=== PATIENT | female | born 1970 | race Caucasian/White ===

== ENCOUNTER 2018-09-10 05:04 | Inpatient (IN) | payer MEDICAID ==
[~2018-09-10] VITALS: Ht 157.5 cm; Wt 63.0 kg
[~2018-09-10 05:04] MED LIST: ASPI-1718 PO; GLU500 PO; IBUP-2213 PO
[2018-09-10 05:25] VITALS: BP 125/75
--- NOTE | 2018-09-10 05:35 | NUR ---
PT AMBULATED TO ER BED 2
--- NOTE | 2018-09-10 05:47 | NUR ---
48 YO F BIB SELF PRESENTS TO ED C/O 10/15 INCISION PAIN TO LOWER LEFT QUADRANT X 1 DAY. PT STATES SHE HAD HER APPENDIX REMOVED X 1 MONTH AGO AT [facility]. SHE IS CURRENTLY BEING TREATED FOR AN INFECTION TO THE SITE. DRESSING IS SATURATED WITH YELLOW/GREEN DRAINAGE. SURROUNDING AREA APPEARS RED AND EXCORIATED. PT DENIES FEVER, NVD. PMH-- DM, HTN, HYPERLIPIDEMIA, PANCREATITIS
--- NOTE | 2018-09-10 05:55 | NUR ---
DR. ATKINS BEDSIDE EVALUATING PT
[2018-09-10] MEDS ORDERED: ALTEPLASE 0 MG IV ONE (05:58)
[2018-09-10] MEDS ORDERED: NACL 0.9% 1,000 ML IV ONE (06:08)
[2018-09-10] MEDS ORDERED: ONDANSETRON 4 MG/2 ML VIAL IVP ONE (06:10)
[2018-09-10] MEDS ORDERED: MORPHINE SULFATE 4 MG/ML SYR IVP ONE (06:10)
--- NOTE | 2018-09-10 06:30 | NUR ---
LABS DRAWN AT BEDSIDE BY RN AND TAKEN TO LAB.
[2018-09-10 06:55] LABS: BILIRUBIN,URINE NEGATIVE (NEGATIVE); BLOOD, URINE NEGATIVE (NEGATIVE); COLOR,URINE YELLOW (YELLOW); LEUKOCYTE ESTERASE ,URINE NEGATIVE (NEGATIVE); NITRITE, URINE NEGATIVE (NEGATIVE); UGLUCOSE 3+ (NEGATIVE)
--- NOTE | 2018-09-10 06:56 | NUR ---
CT WITH CONTRAST OF PELVIS/ABDOMEN CONSENT FORM PROVIDED AND GONE OVER WITH PT. PT IS TAKING METFORMIN. ERMD AND RADIOLOGY MADE AWARE. CONSENT FORM SIGNED.
[2018-09-10 06:57] LABS: APPEARANCE,URINE SLIGHTLY HAZY (CLEAR)
[2018-09-10 07:01] LABS: CARBON DIOXIDE 28.7 mmol/L (21-32); CREATININE 0.5 mg/dL (0.6-1.3); POTASSIUM 3.7 mmol/L (3.5-5.1)
[2018-09-10 07:05] LABS: RBC,URINE NONE SEEN /HPF (0-5)
[2018-09-10 07:06] LABS: ALBUMIN 3.6 g/dL (3.4-5.0); TOTAL BILIRUBIN 0.5 mg/dL (0.0-1.0)
[2018-09-10 07:18] LABS: BASOPHILS % (AUTO) 0.3 % (0.0-2.0); HEMATOCRIT 37.2 % (36-48); HEMOGLOBIN 12.6 g/dL (12.0-16.0); LYMPHOCYTES # (AUTO) 1.6 K/uL (2.5-16.5); LYMPHOCYTES % (AUTO) 31.8 % (20.5-51.1); MEAN CORPUSCULAR HEMOGLOBIN 30 pg (27-31); MEAN CORPUSCULAR HGB CONC 34 g/dL (33-37); MEAN CORPUSCULAR VOLUME 89.3 fL (80-94); MONOCYTES # (AUTO) 0.4 K/uL (0.8-1.0); MONOCYTES % (AUTO) 7.2 % (1.7-9.3); NEUTROPHILS # (AUTO) 2.9 K/uL (1.8-7.7); NEUTROPHILS % (AUTO) 59.7 % (42.2-75.2); PLATELET COUNT (AUTO) 287 K/uL (140-450); RED BLOOD CELL COUNT(AUTO) 4.17 MIL/uL (4.20-5.40); RED CELL DISTRIBUTION WIDTH 12.5 % (11.6-13.7); WHITE BLOOD COUNT (AUTO) 4.9 K/uL (4.8-10.8)
--- NOTE | 2018-09-10 07:36 | NUR ---
RETURNED FROM CT
--- NOTE | 2018-09-10 07:40 | NUR ---
EDUCATION GIVEN TO PT. DO NOT TAKE METFORMIN FOR 48 HOURS AFTER CONTRAST. PT VERBALIZED UNDERSTANDING.
--- NOTE | 2018-09-10 07:57 | NUR ---
CONTINUES TO WAIT FOR CT RESULT AND DISPO----WHEN ASKED WHAT IS HER PAIN LEVEL AT THIS TIME , PT RESPONDED "IM OKAY RIGHT NOW"
[2018-09-10] MEDS ORDERED: ACETAMINOPHEN 325 MG TAB PO PRN (08:20)
[2018-09-10] MEDS ORDERED: MORPHINE SULFATE 2 MG/ML SYR IVP PRN (08:20)
[2018-09-10] MEDS ORDERED: DOCUSATE SODIUM 100 MG GELCAP PO PRN (08:20)
[2018-09-10] MEDS ORDERED: ONDANSETRON 4 MG/2 ML VIAL IM/IVP PRN (08:20)
[2018-09-10] MEDS ORDERED: PIPERACILLIN/TAZOBACTAM 3.375 GM in DEXTROSE 5% 50 ML IV ONE (08:20)
[2018-09-10] MEDS ORDERED: HYDROcodone/APAP 7.5/325 MG 1 TAB PO PRN (08:20)
[2018-09-10] MEDS ORDERED: PIPERACILLIN/TAZOBACTAM 3.375 GM VIAL IV ONE (08:34)
[2018-09-10 08:49] LABS: BARBITURATE, URINE NEG. ng/ml (NEG <=200); BENZODIAZEPINE, URINE NEG. ng/mL (NEG <=200); CANNABINOID, URINE NEG. ng/mL (NEG <=50); COCAINE, URINE NEG. ng/mL (NEG <=300); OPIATE, URINE NEG. ng/mL (NEG <=2000); PHENCYCLIDINE SCREEN,URINE NEG. ng/mL (NEG <=25)
--- NOTE | 2018-09-10 09:12 | NUR ---
Pt transferred to Med/Surg via room 119-b report given to Karen ROUSSEAU
[2018-09-10 09:17] LABS: PROTHROMBIN TIME 9.3 secs (10.8-13.4)
[2018-09-10 09:30] VITALS: BP 99/56
--- NOTE | 2018-09-10 09:30 | NUR ---
PATIENT WAS TRANSFERRED FROM ED. REPORT WAS GIVEN AT BEDSIDE. VS WAS TAKEN. MRSA WAS SWABBED. PATIENT WAS AWAKE, ALERT. RESPIRATION EVEN, UNLABOR ON ROOM AIR. SKIN DRY AND WARM. IV PATENT AND INTACT. DENIED PAIN AT THIS TIME. PATIENT WAS ORIENTED TO ROOM, STAFF, AND CALL LIGHT. PLAN OF CARE WAS DISCUSSED WITH PATIENT. BED AT LOW POSITION, SIDE RAILS UP. CALL LIGHT WITHIN REACH
[2018-09-10 09:34] LABS: MAGNESIUM 1.9 mg/dL (1.8-2.4); PHOSPHORUS 4.2 mg/dL (2.5-4.9); THYROID STIMULATING HORMONE 2.74 uIU/mL (0.34-3.74)
[2018-09-10] MEDS: NACL 0.9% 1,000 ML IV SCH ×2 (09:44→18:47)
[2018-09-10] MEDS ORDERED: DEXTROSE 50% 50 ML SYR IVP PRN (09:50)
--- NOTE | 2018-09-10 12:00 | NUR ---
PT LAYING IN BED. DENIES ANY PAIN. BLOOD SUGAR WAS 205, INSULIN HELD D/T NPO STATUS. WILL CONTINUE TO MONITOR PATIENT.
[2018-09-10] MEDS: PIPER/TAZO 3.375GM/D5W PREMIX 50 ML IV SCH ×2 (12:25→17:09)
[2018-09-10] MEDS: BLOOD GLUCOSE MONITORING 1 DEV DEV FS SCH ×3 (12:28→20:06)
--- NOTE | 2018-09-10 14:06 | NUR ---
MEDICAL RECORD REQUEST WAS SENT PER ORDER
--- NOTE | 2018-09-10 14:22 | NUR ---
PATIENT IS SLEEPING COMFORTABLY. RESPIRATION EVEN, UNLABOR ON ROOM AIR. NO DISTRESS NOTED AT THIS TIME
--- NOTE | 2018-09-10 15:41 | NUR ---
MADE ROUNDS ON PATIENT, RESTING COMFORTABLY, TOOK VITAL SIGNS. NO FURTHER COMPLAINTS AT THIS TIME. WILL CONTINUE TO MONITOR.
[2018-09-10 16:00] VITALS: BP 90/45
[2018-09-10] MEDS: metFORMIN 500 MG TAB PO SCH (17:00)
[2018-09-10] MEDS: INSULIN LISPRO SLIDING SCALE 100 UNITS/ML VIAL SUBQ PRN ×2 (17:13→20:27)
--- NOTE | 2018-09-10 18:30 | NUR ---
PATIENT WAS AWAKE, ALERT, SITTING IN BED COMFORTABLY. RESPIRATION EVEN, UNLABOR ON ROOM AIR. NO DISTRESS NOTED AT THIS TIME
--- NOTE | 2018-09-10 19:15 | NUR ---
UPDATES ON PATIENT GIVEN TO BOX BLANK MACHINE OPERATOR NURSE. PATIENT STABLE UPON CHANGE OF SHIFT.
--- NOTE | 2018-09-10 19:16 | NUR ---
RECEIVED BEDSIDE REPORT FROM DAY SHIFT NURSE. NO SOB OR ANY RESPIRATORY DISTRESS NOTED. SKIN INTACT, WARM AND DRY TO TOUCH. IV SITE ON LFA, 22G, INTACT, PATENT AND ASYMPTOMATIC. DENIED PAIN AT THIS TIME. PLAN OF CARE REVIEWED WITH PT. PT VERBALIZED UNDERSTANDING. STANDARD PRECAUTION IN PLACE. BED IN LOW POSITION, CALL LIGHT WITHIN REACH. WILL CONTINUE TO MONITOR.
--- NOTE | 2018-09-10 20:06 | NUR ---
BS CHECKED, 307. INSULIN WILL BE COVERED.
--- NOTE | 2018-09-10 20:27 | NUR ---
ADMINISTERED HUMALOG INSULIN MD ORDERED. WILL CONTINUE TO MONITOR.
--- NOTE | 2018-09-10 22:10 | NUR ---
PT SLEEPING. BREATHING EVEN AND UNLABORED. NO ACUTE DISTRESS N0OTED.
[2018-09-11] VITALS: BP 90/55
[2018-09-11] MEDS: PIPER/TAZO 3.375GM/D5W PREMIX 50 ML IV SCH ×2 (00:05→05:07)
--- NOTE | 2018-09-11 00:05 | NUR ---
GIVEN ZOSYN MD ORDERED. PT TOLERATED WELL. WILL CONTINUE TO MONITOR.
--- NOTE | 2018-09-11 02:45 | NUR ---
PT AWAKE IN BED. NO SOB OR ANY RESPIRATORY DISTRESS NOTED. BED IN LOW POSITION. CALL LIGHT WITHIN REACH.
[2018-09-11] MEDS: NACL 0.9% 1,000 ML IV SCH ×2 (04:20→08:30)
--- NOTE | 2018-09-11 05:07 | NUR ---
GIVEN ZOSYN DR. ORDERED. PT TOLERATED WELL.
[2018-09-11] MEDS: BLOOD GLUCOSE MONITORING 1 DEV DEV FS SCH ×4 (05:36→21:50)
[2018-09-11] MEDS: INSULIN LISPRO SLIDING SCALE 100 UNITS/ML VIAL SUBQ PRN ×4 (05:49→21:52)
--- NOTE | 2018-09-11 05:49 | NUR ---
BS CHECKED, 235, GIVEN INSULIN MD ORDERED. PT TOLERATED WELL.
--- NOTE | 2018-09-11 06:08 | NUR ---
FNS consult received on 09/10/18 for unhealed wound/abscess. Consult reason does not meet high risk criteria per hospital policy. Patient will be seen and assessed according to the nutrition care policy. Wilda Lilly MS, RDN
--- NOTE | 2018-09-11 06:09 | NUR ---
PATIENT HAS BEEN SCREENED AND CATEGORIZED MODERATE NUTRITION RISK. PATIENT WILL BE SEEN WITHIN 3-5 DAYS OF ADMISSION. 09/13/18-09/15/18 KATERINA VALDEZ MS, RDN
--- NOTE | 2018-09-11 07:17 | NUR ---
ENDORSED PT TO DAY SHIFT NURSE. PT IN STABLE CONDITION.
[2018-09-11] MEDS: metFORMIN 500 MG TAB PO SCH ×2 (07:58→15:55)
[2018-09-11 08:00] VITALS: BP 106/67
[2018-09-11 08:19] LABS: BASOPHILS % (AUTO) 0.1 % (0.0-2.0); EOSINOPHILS # (AUTO) 0.1 K/uL (0-0.4); EOSINOPHILS % (AUTO) 1.2 % (0.0-4.0); HEMATOCRIT 36.5 % (36-48); HEMOGLOBIN 12.4 g/dL (12.0-16.0); LYMPHOCYTES # (AUTO) 1.2 K/uL (2.5-16.5); LYMPHOCYTES % (AUTO) 27.8 % (20.5-51.1); MEAN CORPUSCULAR HEMOGLOBIN 30 pg (27-31); MEAN CORPUSCULAR HGB CONC 34 g/dL (33-37); MEAN CORPUSCULAR VOLUME 89.6 fL (80-94); MONOCYTES # (AUTO) 0.2 K/uL (0.8-1.0); MONOCYTES % (AUTO) 5.3 % (1.7-9.3); NEUTROPHILS # (AUTO) 2.9 K/uL (1.8-7.7); NEUTROPHILS % (AUTO) 65.6 % (42.2-75.2); PLATELET COUNT (AUTO) 289 K/uL (140-450); RED BLOOD CELL COUNT(AUTO) 4.08 MIL/uL (4.20-5.40); RED CELL DISTRIBUTION WIDTH 13.2 % (11.6-13.7); WHITE BLOOD COUNT (AUTO) 4.4 K/uL (4.8-10.8)
[2018-09-11] MEDS: LACTOBACILLUS RHAMNOSUS GG 1 EACH CAP PO SCH (08:29)
--- NOTE | 2018-09-11 08:30 | NUR ---
SCHEDULED MED GIVEN. PT UP IN BED, FINISHED BREAKFAST.
[2018-09-11 09:16] LABS: ANION GAP 15.7 (8-16); CARBON DIOXIDE 23.6 mmol/L (21-32); POTASSIUM 3.3 mmol/L (3.5-5.1)
[2018-09-11 09:28] LABS: CHOL/HDL RATIO 4.6 (1-4.5)
[2018-09-11 09:29] LABS: MAGNESIUM 1.7 mg/dL (1.8-2.4); PHOSPHORUS 2.8 mg/dL (2.5-4.9)
[2018-09-11 09:33] LABS: CREATININE 0.5 mg/dL (0.6-1.3)
[2018-09-11] MEDS ORDERED: MAGNESIUM OXIDE 400 MG TAB PO SCH (11:15)
[2018-09-11] MEDS ORDERED: POTASSIUM CHLORIDE 40 MEQ, LIDOCAINE MPF 1% - 5 mL VIAL 25 MG in NACL 0.9% 250 ML IV ONE (11:15)
[2018-09-11] MEDS: PIPERACILLIN/TAZOBACTAM 3.375 GM in DEXTROSE 5% 100 ML IV SCH ×2 (11:36→17:14)
[2018-09-11] MEDS ORDERED: POTASSIUM CHLORIDE 40 MEQ, LIDOCAINE 1% 25 MG in NACL 0.9% 250 ML IV ONE (11:50)
--- NOTE | 2018-09-11 12:23 | NUR ---
CALLED PHARMACY TO BRING ONE TIME DOSE MAG OX- TELE PYXIS NOT WORKING.
--- NOTE | 2018-09-11 15:56 | NUR ---
SCHEDULED METFORMIN WILL NOT BE GIVEN- STILL WITHIN 48HRS AFTER CONTRAST ADMIN.
[2018-09-11 16:00] VITALS: BP 100/60
--- NOTE | 2018-09-11 18:05 | NUR ---
NOTIFIED DR. BROWN OF US ABD RESULTS. PER DR. STEPHANIE DU TO D/C TODAY, F/U OUTPATIENT IN 1 WEEK, RX ABX AMPICILLIN X1 WEEK. NOTIFIED DR. STONE. PER DR. MOTA, WILL PLAN TO D/C TOMORROW.
--- NOTE | 2018-09-11 19:11 | NUR ---
ENDORSED POC TO PIPE TESTING TECHNICIAN RN. PT IN STABLE CONDITION.
--- NOTE | 2018-09-11 19:15 | NUR ---
RECEIVED ENDORSEMENT FOR POC AT BEDSIDE FOR CONTINUITY OF CARE, PT IN STABLE CONDITION.
[2018-09-11] MEDS ORDERED: VANCOMYCIN PER PHARMACY MC PRN (19:25)
--- NOTE | 2018-09-11 20:00 | NUR ---
PT IN BED SHE IS AOX4 SPEAKS ALB[place], BUT UNDERSTANDS AND CAN COMMUNICATE IN [place]. SHE HAS NO C/O OF PAIN. IV SITE ON 22G LEFT FOREARM INTACT AND FLUSHED PATENT. N/S RUNNING AT 60MLS /HR. PT HAS NO C/O VOICED AT THIS TIME BED IS LOW AND SIDE RAILS UP X2 WITH GINO POPE IN REACH. V/S FOLLOWS T 97.9 P 77 R 18 B/P 97/43 02 99% ON ROOM AIR.
[2018-09-11] MEDS ORDERED: VANCOMYCIN 1GM/DEXT 5% PREMIX 200 ML IV SCH (21:00)
--- NOTE | 2018-09-11 21:00 | NUR ---
PT N BED FINGERSTICK IS 359, PT GIVEN 10 UNITS OF HUMALOG PER S/S PROTOCOL. PT ALSO GIVEN VANCOCIN IVPB ORDERED. PT DENIES PAIN.
[2018-09-11] MEDS ORDERED: VANCOMYCIN 1,000 MG VIAL ONE (21:46)
[2018-09-12] VITALS: BP 91/53
--- NOTE | 2018-09-12 | NUR ---
PT IN BED SLEEPING BUT AROUSABLE TO LIGHT TOUCH AND NAME. PT GIVEN IVPB ZOSYN ORDERED. V/S FOLLOWS T 97.9 P 77 R 18 B/P 97/43 02 99% ON ROOM AIR. NO C/O VOICED BY RESIDENT AND NO S/S OF PAIN OR DISTRESS NOTED.
[2018-09-12] MEDS: PIPERACILLIN/TAZOBACTAM 3.375 GM in DEXTROSE 5% 100 ML IV SCH ×3 (00:13→12:56)
--- NOTE | 2018-09-12 04:39 | NUR ---
IV SITE ON LEFT F/A INFILTRATED, NEW IV SITE PLACED ON R HAND 24G.
[2018-09-12] MEDS: BLOOD GLUCOSE MONITORING 1 DEV DEV FS SCH ×4 (05:48→21:00)
[2018-09-12] MEDS: INSULIN LISPRO SLIDING SCALE 100 UNITS/ML VIAL SUBQ PRN ×4 (05:52→23:35)
--- NOTE | 2018-09-12 06:00 | NUR ---
PT IN BED MIRNA GUAMAN ORDERED AND FINGERSTICK TAKEN F/S IS 247, PT GIVEN 4 UNITS OF HUMALOG COVERAGE. NO C/O VOICED BY PT AND ALL REQUESTED NEEDS ATTENDED. WILL ENDORSE CARE TO N[facility] F[facility] CONTINUITY OF CARE,PT IN STABLE CONDITION.
[2018-09-12 06:03] LABS: ANION GAP 13.7 (8-16); CARBON DIOXIDE 25.3 mmol/L (21-32); CREATININE 0.5 mg/dL (0.6-1.3)
[2018-09-12 06:11] LABS: MAGNESIUM 1.6 mg/dL (1.8-2.4); PHOSPHORUS 4.2 mg/dL (2.5-4.9)
[2018-09-12 06:29] LABS: BASOPHILS % (AUTO) 0.3 % (0.0-2.0); EOSINOPHILS # (AUTO) 0.1 K/uL (0-0.4); EOSINOPHILS % (AUTO) 1.2 % (0.0-4.0); HEMATOCRIT 36.5 % (36-48); HEMOGLOBIN 12.4 g/dL (12.0-16.0); LYMPHOCYTES # (AUTO) 1.7 K/uL (2.5-16.5); LYMPHOCYTES % (AUTO) 37.4 % (20.5-51.1); MEAN CORPUSCULAR HEMOGLOBIN 31 pg (27-31); MEAN CORPUSCULAR HGB CONC 34 g/dL (33-37); MEAN CORPUSCULAR VOLUME 90.1 fL (80-94); MONOCYTES # (AUTO) 0.3 K/uL (0.8-1.0); MONOCYTES % (AUTO) 7.2 % (1.7-9.3); NEUTROPHILS # (AUTO) 2.5 K/uL (1.8-7.7); NEUTROPHILS % (AUTO) 53.9 % (42.2-75.2); PLATELET COUNT (AUTO) 277 K/uL (140-450); RED BLOOD CELL COUNT(AUTO) 4.05 MIL/uL (4.20-5.40); RED CELL DISTRIBUTION WIDTH 13.1 % (11.6-13.7); WHITE BLOOD COUNT (AUTO) 4.6 K/uL (4.8-10.8)
--- NOTE | 2018-09-12 07:10 | NUR ---
RECEIVED BEDSIDE REPORT FROM SOHAM SCHMITT. PT STABLE, SLEEPING, BUT EASILY AROUSABLE. NO SIGNS OF DISTRESS NOTED. NO REDNESS, SWELLING, OR INFLAMMATION NOTED ON IV SITE. CALL POPE WITHIN REACH. BED IN LOWEST POSITION. SAFETY MEASURES IN PLACE. PLAN OF CARE REVIEWED.
[2018-09-12 08:00] VITALS: BP 93/63
[2018-09-12] MEDS ORDERED: VANCOMYCIN 750 MG in DEXTROSE 5% 250 ML IV SCH (09:00)
[2018-09-12] MEDS ORDERED: MAGNESIUM OXIDE 400 MG TAB PO SCH (09:15)
--- NOTE | 2018-09-12 09:20 | NUR ---
PT STABLE, AMBULATED TO THE BATHROOM WITH STEADY GAIT. NO SIGNS OF DISTRESS NOTED.
[2018-09-12] MEDS ORDERED: METF850T PO (09:55)
--- NOTE | 2018-09-12 10:15 | NUR ---
WOUND CARE EVALUATION NOTE: REASON FOR EVALUATION: S/P SURGICAL WOUND SKIN ASSESSMENT DONE WITH THIS 48 Y/O FEMALE PT ADMITTED FROM HOME TO [facility] WITH INITIAL DX OF ABDOMINAL PAIN. PAST MEDICAL HX INCLUDES HTN, DM LAP ESTRELLA AND S/P LAPPY LAST MONTH AT [facility]. ALL ABOVE INFORMATION OBTAINED FROM ADMISSION H&P, AND PT. RECENT Hgb A1C 13.5 AND PT. PT IS AAX4. PT IS AWAKE. SKIN IS WARM AND DRY, BLE NO HAIR GROWTH.BILATERAL DORSAL PEDAL PULSES PRESENT AND NORMAL. PLAN OF CARE DISCUSSED WITH PRIMARY RN AND PT. PT. VERBALIZES UNDERSTANDING. INTEGUMENTARY: -LLQ ABD SURGICAL WOUND 2X1.5X0.5CM WOUND BED 100% GRANULATING TISSUE, MODERATE AMOUNT OF SEROSANGUINEOUS DRAINAGE WITH MILD ODOR, PER-WOUND SKIN INTACT. NO PAIN. RECOMMENDATIONS: -CLEANSE LLQ ABDOMINAL SURGICAL WOUND WITH NS. PAT DRY, APPLY SILVASORB GEL AND COVER WITH DRY DRESSING QD AND PRN IF SOILING. -OFFLOAD BILATERAL HEELS BY PLACING PILLOWS UNDER CALVES UNLESS OTHERWISE CONTRAINDICATED -CONTINUE TO FOLLOW RD RECOMMENDATIONS ALL ABOVE RECOMMENDATIONS DISCUSSED WITH PRIMARY RN PLEASE CONTACT WOUND CARE NURSE FOR ANY QUESTION AND CHANGE OF WOUND CONDITION.
[2018-09-12] MEDS: LACTOBACILLUS RHAMNOSUS GG 1 EACH CAP PO SCH (10:56)
--- NOTE | 2018-09-12 10:56 | NUR ---
ADMINISTERED SCHEDULED MEDICATIONS, PT TOLERATED WELL. NO OTHER NEEDS AT THIS TIME.
[2018-09-12] MEDS: NACL 0.9% 1,000 ML IV SCH ×2 (10:57→17:08)
[2018-09-12] MEDS: metFORMIN 850 MG TAB PO SCH ×2 (12:55→17:06)
--- NOTE | 2018-09-12 12:55 | NUR ---
ADMINISTERED SCHEDULED MEDICATIONS, PT TOLERATED WELL. NO OTHER NEEDS AT THIS TIME.
[2018-09-12] MEDS: GAUZE TP SCH (12:56)
[2018-09-12] MEDS ORDERED: LACT1.4C PO (13:14)
--- NOTE | 2018-09-12 14:02 | NUR ---
09/12/18 RD INITIAL ASSESSMENT COMPLETED PLEASE REFER TO NUTRITION ASSESSMENT UNDER CARE ACTIVITY FOR ESTIMATED NUTRITIONAL NEEDS. 1. CONTINUE CCHO 60 GM DIET TOLERATED 2. RD PROVIDED DIABETIC NUTRITION EDUCATION. PT ACCEPTED 3. RD TO FOLLOW-UP 3-5 DAYS, MODERATE RISK JACOB HERNANDEZ RD
--- NOTE | 2018-09-12 14:20 | NUR ---
PT STABLE, SLEEPING, BUT EASILY AROUSABLE. NO SIGNS OF DISTRESS NOTED. NO OTHER NEEDS AT THIS TIME.
[2018-09-12 16:00] VITALS: BP 104/68
--- NOTE | 2018-09-12 16:20 | NUR ---
VITAL SIGNS TAKEN, PT STABLE. PT AMBULATING TO THE HALLWAY WITH STEADY GAIT.
--- NOTE | 2018-09-12 17:10 | NUR ---
IVF BAG CHANGED. ADMINISTERED SCHEDULED METFORMIN AND 4 UNITS HUMALOG FOR BG 248. PT TOLERATED WELL. NO OTHER NEEDS AT THIS TIME.
--- NOTE | 2018-09-12 19:10 | NUR ---
ENDORSED PT TO SOHAM HUMPHREY FOR CONTINUITY OF CARE. PT STABLE.
--- NOTE | 2018-09-12 19:10 | NUR ---
RECEIVED REPORT FROM AM SHIFT NURSE FOR CONTINUITY OF CARE. PATIENT IS LYING DOWN, AWAKE, ALERT, WATCHING TV. HAS LEFT HAND IV 24GA WITH NORMAL SALINE RUNNING AT 60 ML/HR. PATIENT IS ON ROOM AIR. DENIES ANY PAIN AT THIS TIME. BED IS IN LOW POSITION, SIDE RAILS ARE UP, AND CALL LIGHT WITHIN REACH. WILL MONITOR PATIENT THROUGHOUT SHIFT.
[2018-09-12] MEDS ORDERED: LEVO750T2 PO (20:32)
[2018-09-12] MEDS ORDERED: MEROPENEM 1,000 MG in NACL 0.9% 100 ML IV SCH (21:00)
--- NOTE | 2018-09-12 21:00 | NUR ---
BLOOD GLUCOSE CHECK, RESULT 312, GAVE 8 UNITS. PATIENT TOLERATED IT WELL.
[2018-09-13] VITALS: BP 93/45
--- NOTE | 2018-09-13 | NUR ---
VITAL SIGNS TAKEN AND CHARTED. PATIENT DENIES PAIN AT THIS TIME. WILL CONTINUE TO MONITOR PATIENT.
--- NOTE | 2018-09-13 01:00 | NUR ---
ASSESSED PATIENT'S LEFT ABDOMINAL DRESSING. DRESSING IS DRY AND INTACT. WILL CONTINUE TO MONITOR PATIENT.
--- NOTE | 2018-09-13 01:00 | NUR ---
WOUND ASSESSMENT- DRESSING IS DRY AND INTACT. PATIENT DENIES PAIN AT THIS TIME.
[2018-09-13] MEDS ORDERED: MEROPENEM 500 MG VIAL IV ONE (01:10)
[2018-09-13] MEDS: MEROPENEM 1,000 MG in NACL 0.9% 100 ML IV SCH ×4 (01:15→20:50)
--- NOTE | 2018-09-13 01:15 | NUR ---
ADMINISTERED IV ANTIBIOTICS ORDERED. PATIENT TOLERATED IT WELL. WILL CONTINUE TO MONITOR PATIENT.
--- NOTE | 2018-09-13 04:00 | NUR ---
MADE ROUNDS. PATIENT LYING DOWN IN BED, ASLEEP, WITH NO SIGNS OF DISTRESS. WILL CONTINUE TO MONITOR PATIENT.
[2018-09-13] MEDS: BLOOD GLUCOSE MONITORING 1 DEV DEV FS SCH ×4 (05:44→20:49)
[2018-09-13] MEDS: INSULIN LISPRO SLIDING SCALE 100 UNITS/ML VIAL SUBQ PRN ×4 (06:00→20:56)
--- NOTE | 2018-09-13 06:00 | NUR ---
ADMINISTERED 4 UNITS OF INSULIN SUBQ ORDERED FOR BLOOD SUGAR RESULT OF 227. PATIENT TOLERATED IT WELL.
--- NOTE | 2018-09-13 07:25 | NUR ---
RECEIVED BEDSIDE REPORT FROM SAP PROJECT MANAGER NURSE FOR CONTINUITY OF CARE. PATIENT IS AWAKE AND RESTING ON BED AT THIS TIME. PATIENT IS AAOX4. RESPIRATION EVEN AND UNLABORED ON RA. DENIED PAIN AND SOB AT THIS TIME. NO SIGNS OF DISTRESS NOTED. IV ON L HAND 24G, CLEAN AND INTACT, INFUSING PER MD ORDER. DRESSING ON ABDOMINAL AREA NOTED, CLEAN AND DRY, OTHERWISE, SKIN INTACT AND CLEAN. PATIENT IS ABLE TO AMBULATE WITH STEADY GAIT AND CONTINENT. DISCUSSED PLAN OF CARE WITH PATIENT AND PATIENT VERBALIZED UNDERSTANDING. SAFETY MEASURES IN PLACE. BED IN LOW POSITION AND CALL LIGHT WITHIN REACH. INSTRUCTED PATIENT TO USE THE CALL LIGHT FOR ANY ASSISTANCE AND PATIENT WAS AWARE.
--- NOTE | 2018-09-13 07:25 | NUR ---
ENDORSED PATIENT TO AM SHIFT NURSE FOR CONTINUITY OF CARE. PATIENT IS LYING DOWN, AWAKE, WITH NO SIGNS OF DISTRESS.
[2018-09-13 08:00] VITALS: BP 106/67
[2018-09-13] MEDS: metFORMIN 850 MG TAB PO SCH ×3 (08:25→17:09)
--- NOTE | 2018-09-13 09:27 | NUR ---
MERREM WAS NOT GIVEN DUE TO NOT WITHIN MY SHIFT AND TOO CLOSE WITH PREVIOUS DOSAGE. VERIFIED AND CONFIRMED WITH PHARMACIST.
[2018-09-13] MEDS: LACTOBACILLUS RHAMNOSUS GG 1 EACH CAP PO SCH (09:31)
--- NOTE | 2018-09-13 09:32 | NUR ---
PATIENT SITTING IN BED ON HER PHONE. NO DISTRESS NOTED. SCHEDULED MEDICATIONS DUE GIVEN. WILL CONTINUE TO MONITOR.
[2018-09-13] MEDS ORDERED: MAG SULF 2000 MG/WATER PREMIX 50 ML IV SCH (10:15)
--- NOTE | 2018-09-13 10:15 | NUR ---
PATIENT IS SITTING UP ON BED AND TALKING TO VISITOR MICHELET AT BEDSIDE. CONTACT ISOLATION EDUCATION PROVIDED TO VISITOR MICHELET AND MICHELET WAS AWARE TO PUT ON PPE AT ALL TIME IN PATIENT'S ROOM. SAFETY MEASURES IN PLACE. TELE MONITOR ATTACHED. BED IN LOW POSITION AND CALL LIGHT WITHIN REACH. INSTRUCTED PATIENT TO USE THE CALL LIGHT FOR ANY ASSISTANCE AND PATIENT WAS AWARE.
--- NOTE | 2018-09-13 10:58 | NUR ---
ADMINISTERED MAG PER MD ORDER, PATIENT'S MAG LEVEL 1.6L FROM 09/12/18 LAB. CHECKED PATIENT'S BLOOD GLUCOSE AND RECEIVED 200, ADMINISTERED 10 UNIT LANTUS PER MD ORDER, PATIENT TOLERATED WELL. PATIENT IS TALKING TO VISITOR MICHELET AD BEDSIDE. NO SIGNS OF DISTRESS NOTED. SAFETY MEASURES IN PLACE. BED IN LOW POSITION AND CALL LIGHT WITHIN REACH. INSTRUCTED PATIENT TO USE THE CALL LIGHT FOR ANY ASSISTANCE AND PATIENT WAS AWARE.
[2018-09-13] MEDS: INSULIN LANTUS 100 UNITS/ML 10 ML VIAL SUBQ SCH (11:01)
--- NOTE | 2018-09-13 11:48 | NUR ---
PATIENT IS AWAKE AND WATCHING TV ON BED. DENIED PAIN AND SOB. RESPIRATION EVEN AND UNLABORED ON RA. NO SIGNS OF DISTRESS NOTED. SAFETY MEASURES IN PLACE. BED IN LOW POSITION AND CALL LIGHT WITHIN REACH. INSTRUCTED PATIENT TO USE THE CALL LIGHT FOR ANY ASSISTANCE AND PATIENT WAS AWARE.
[2018-09-13] MEDS: GAUZE TP SCH (13:11)
--- NOTE | 2018-09-13 13:14 | NUR ---
CHANGED PATIENT'S DRESSING ON ABDOMINAL AREA, PATIENT TOLERATED WELL. DENIED PAIN AND SOB. NO SIGNS OF DISTRESS NOTED. PATIENT IS SITTING UP ON CHAIR AND WATCHING TV. SAFETY MEASURES IN PLACE. BED IN LOW POSITION AND CALL LIGHT WITHIN REACH. INSTRUCTED PATIENT TO USE THE CALL LIGHT FOR ANY ASSISTANCE AND PATIENT WAS AWARE.
--- NOTE | 2018-09-13 15:25 | NUR ---
PATIENT IS RESTING ON BED AT THIS TIME. DENIED PAIN AND SOB. RESPIRATION EVEN AND UNLABORED ON RA. NO SIGNS OF DISTRESS NOTED. SAFETY MEASURES IN PLACE. BED IN LOW POSITION AND CALL LIGHT WITHIN REACH. INSTRUCTED PATIENT TO USE THE CALL LIGHT FOR ANY ASSISTANCE AND PATIENT WAS AWARE.
[2018-09-13 16:00] VITALS: BP 105/64
[2018-09-13] MEDS: NACL 0.9% 1,000 ML IV SCH (16:54)
--- NOTE | 2018-09-13 17:24 | NUR ---
PATIENT IS AWAKE AND PLAYING WITH HER PHONE ON BED. NO SIGNS OF DISTRESS NOTED. SAFETY MEASURES IN PLACE. BED IN LOW POSITION AND CALL LIGHT WITHIN REACH. INSTRUCTED PATIENT TO USE THE CALL LIGHT FOR ANY ASSISTANCE AND PATIENT WAS AWARE.
--- NOTE | 2018-09-13 19:17 | NUR ---
ENDORSED PATIENT AT BEDSIDE TO PROPOSAL EDITOR NURSE FOR CONTINUITY OF CARE. PATIENT IS AWAKE AND TALKING TO VISITOR AT BEDSIDE. NO SIGNS OF DISTRESS NOTED. SAFETY MEASURES IN PLACE. BED IN LOW POSITION AND CALL LIGHT WITHIN REACH.
--- NOTE | 2018-09-13 19:30 | NUR ---
ASSUMED CARE OF PATIENT, AWAKE, ALERT AND ORIENTED. NO COMPLAINS. FAMILY AT BEDSIDE. CALL LIGHT WITHIN REACH.
--- NOTE | 2018-09-13 21:00 | NUR ---
DUE MEDS GIVEN. PLAN OF CARE DISCUSSED WITH PATIENT AND FAMILY MEMBER AT BEDSIDE, VERBALIZED UNDERSTANDING WELL. HS SNACK GIVEN. CARE BOARD UPDATED. CALL LIGHT WITHIN REACH.
--- NOTE | 2018-09-14 | NUR ---
ASLEEP, EASILY AROUSABLE. NO COMPLAINS. VITAL SIGNS STABLE. AFEBRILE. CALL LIGHT WITHIN REACH.
[2018-09-14 00:18] VITALS: BP 123/72
--- NOTE | 2018-09-14 02:00 | NUR ---
ASLEEP. NO COMPLAINS. CALL LIGHT WITHIN REACH.
--- NOTE | 2018-09-14 04:23 | NUR ---
ASLEEP WELL, EASILY AROUSABLE. NO COMPLAINS. CALL LIGHT WITHIN REACH.
[2018-09-14] MEDS: MEROPENEM 1,000 MG in NACL 0.9% 100 ML IV SCH ×3 (04:39→23:34)
[2018-09-14] MEDS: BLOOD GLUCOSE MONITORING 1 DEV DEV FS SCH ×4 (05:37→21:00)
[2018-09-14] MEDS: INSULIN LISPRO SLIDING SCALE 100 UNITS/ML VIAL SUBQ PRN ×3 (05:57→23:36)
--- NOTE | 2018-09-14 06:21 | NUR ---
ASLEEP, STABLE ALL NIGHT. NO COMPLAINS. CALL LIGHT WITHIN REACH.
[2018-09-14 06:52] LABS: BASOPHILS % (AUTO) 0.3 % (0.0-2.0); EOSINOPHILS % (AUTO) 0.8 % (0.0-4.0); HEMATOCRIT 37.4 % (36-48); HEMOGLOBIN 12.5 g/dL (12.0-16.0); LYMPHOCYTES # (AUTO) 1.2 K/uL (2.5-16.5); LYMPHOCYTES % (AUTO) 27.4 % (20.5-51.1); MEAN CORPUSCULAR HEMOGLOBIN 30 pg (27-31); MEAN CORPUSCULAR HGB CONC 33 g/dL (33-37); MONOCYTES # (AUTO) 0.3 K/uL (0.8-1.0); NEUTROPHILS # (AUTO) 2.7 K/uL (1.8-7.7); NEUTROPHILS % (AUTO) 64.5 % (42.2-75.2); PLATELET COUNT (AUTO) 269 K/uL (140-450); RED BLOOD CELL COUNT(AUTO) 4.16 MIL/uL (4.20-5.40); WHITE BLOOD COUNT (AUTO) 4.2 K/uL (4.8-10.8)
[2018-09-14 06:59] LABS: ANION GAP 13.3 (8-16); CARBON DIOXIDE 25.7 mmol/L (21-32); CREATININE 0.5 mg/dL (0.6-1.3)
--- NOTE | 2018-09-14 07:11 | NUR ---
ENDORSED CARE AT BEDSIDE WITH BEA, PATIENT IN STABLE CONDITION.
--- NOTE | 2018-09-14 07:12 | NUR ---
RECEIVED REPORT FROM OCEAN TRANSPORTATION INTERMEDIARY NURSE ISMAEL FOR CONTINUITY OF CARE. PT IN STABLE CONDITION. RESPIRATIONS EVEN AND UNLABORED. ROOM AIR. IV INTACT AND PATENT. BED IN LOW POSITION. CALL LIGHT AT BEDSIDE. WILL CONTINUE TO MONITOR.
[2018-09-14 08:00] VITALS: BP 112/67
[2018-09-14] MEDS: metFORMIN 850 MG TAB PO SCH ×3 (08:28→17:30)
[2018-09-14] MEDS: CHLORHEXADINE GLUC 2% CLOTH TP SCH (08:28)
[2018-09-14] MEDS: LACTOBACILLUS RHAMNOSUS GG 1 EACH CAP PO SCH (08:28)
[2018-09-14 08:54] LABS: MAGNESIUM 1.6 mg/dL (1.8-2.4); PHOSPHORUS 3.7 mg/dL (2.5-4.9)
--- NOTE | 2018-09-14 09:00 | NUR ---
GAVE ORDERED DUE MEDICATIONS AT THIS TIME. PT TOLERATED WELL. WILL CONTINUE TO MONITOR.
--- NOTE | 2018-09-14 10:25 | NUR ---
GAVE ORDERED DUE MEDICATION PT TOLERATED WELL. PT LYING IN BED LOOKING AT HER PHONE IN STABLE CONDITION. BED IN LOW POSITION. CALL LIGHT AT BEDSIDE. WILL CONTINUE TO MONITOR.
[2018-09-14] MEDS: INSULIN LANTUS 100 UNITS/ML 10 ML VIAL SUBQ SCH (10:29)
--- NOTE | 2018-09-14 12:03 | NUR ---
PT LYING IN BED IN STABLE CONDITION. BED IN LOW POSITION. CALL LIGHT AT BEDSIDE. WILL CONTINUE TO MONITOR.
[2018-09-14] MEDS: GAUZE TP SCH (12:12)
[2018-09-14] MEDS: NACL 0.9% 1,000 ML IV SCH (12:12)
--- NOTE | 2018-09-14 13:08 | NUR ---
PT SITTING IN CHAIR LOOKING AT HER PHONE IN STABLE CONDITION. CALL LIGHT AT SIDE. WILL CONTINUE TO MONITOR.
--- NOTE | 2018-09-14 15:44 | NUR ---
SITTING IN CHAIR AT BEDSIDE IN STABLE CONDITION. WILL CONTINUE TO MONITOR.
[2018-09-14 16:00] VITALS: BP 109/64
--- NOTE | 2018-09-14 17:47 | NUR ---
GAVE ORDERED DUE MEDICATION AT THIS TIME. PT TOLERATED WELL. PT SITTING IN CHAIR AT BEDSIDE. WILL CONTINUE TO MONITOR.
--- NOTE | 2018-09-14 19:23 | NUR ---
GAVE REPORT TO SUPERVISOR TYPE PHOTOGRAPHY NURSE FRANK FOR CONTINUITY OF CARE. PT IN STABLE CONDITION.
--- NOTE | 2018-09-14 19:23 | NUR ---
RECIEVED PT AAOX4, NID IV SITE INTACT AND DRY , ABDL. DRESSING INTACT AND DRY , IVF INFUSING WELL , PLAN OF CARE DISCUSSED AND VERBALIZE UNDERSTANDING , CALL LIGHT WITHIN REACH , SIDERAILS UPX2 , BED IN LOW POSITION, WILL CONTINUE TO MONITOR .
--- NOTE | 2018-09-14 22:00 | NUR ---
MADE ROUNDS .PT SLEEPING.
[2018-09-15] VITALS: BP 110/70
--- NOTE | 2018-09-15 04:00 | NUR ---
MADE ROUNDS ,PT VOIDED URINE FREELY , NID , NO COMPLAIN MADE AT THIS TIME . CALL LIGHT WITHIN REACH
--- NOTE | 2018-09-15 06:00 | NUR ---
MADE ROUNDS ,PT SLEEPING.
[2018-09-15] MEDS: MEROPENEM 1,000 MG in NACL 0.9% 100 ML IV SCH (06:04)
[2018-09-15] MEDS: NACL 0.9% 1,000 ML IV SCH (06:06)
[2018-09-15] MEDS: BLOOD GLUCOSE MONITORING 1 DEV DEV FS SCH (07:00)
--- NOTE | 2018-09-15 07:16 | NUR ---
ENDORSED TO AM SHIFT FOR CONTINUITY OF CARE WITH STABLE CONDITION.
--- NOTE | 2018-09-15 07:17 | NUR ---
RECEIVED REPORT FROM ROCK LATHER NURSE FRANK. PT IN STABLE CONDITION. RESPIRATIONS EVEN AND UNLABORED, ROOM AIR. IV INTACT AND PATENT. SAFETY MEASURE IN PLACE. BED IN LOW POSITION. CALL LIGHT AT BEDSIDE.
[2018-09-15 08:00] VITALS: BP 104/61
[2018-09-15] MEDS: metFORMIN 850 MG TAB PO SCH (08:14)
--- NOTE | 2018-09-15 09:35 | NUR ---
GAVE ORDERED DUE MEDICATIONS AT THIS TIME. PT TOLERATED WELL. PT SITTING IN CHAIR AT BEDSIDE. WILL CONTINUE TO MONITOR. BED IN LOW POSITION. CALL LIGHT WITHIN REACH.
[2018-09-15] MEDS: CHLORHEXADINE GLUC 2% CLOTH TP SCH (09:37)
[2018-09-15] MEDS: LACTOBACILLUS RHAMNOSUS GG 1 EACH CAP PO SCH (09:37)
[2018-09-15] MEDS: INSULIN LANTUS 100 UNITS/ML 10 ML VIAL SUBQ SCH (09:41)
[2018-09-15] MEDS ORDERED: CIPR500T4 PO (10:20)
[2018-09-15] MEDS ORDERED: AMOX-999 PO (10:20)
--- NOTE | 2018-09-15 11:30 | NUR ---
GAVE DISCHARGE INSTRUCTIONS, PRESCRIPTIONS AND INFORMED PT TO PEDIATRIC NURSE PRACTITIONER MEDICATIONS AT HOME PHARMACY. PT VERBALIZED UNDERSTANDING OF INSTRUCTIONS. REMOVED IV, LUMEN INTACT. REMOVED OLD DRESSING FROM ABDOMEN, MINIMAL DRAINAGE NO ODOR. TOOK PICTURE OF ABDOMINAL WOUND. CLEANED WITH SALINE, PAT DRY. DRESSED WITH ISLAND DRESSING. PT TOLERATED WELL. PT GETTING DRESSED TO WAIT FOR PEDIATRIC NURSE PRACTITIONER FROM FAMILY.
--- NOTE | 2018-09-15 12:30 | NUR ---
ID BAND REMOVED AT THIS TIME. PT REFUSED WHEELCHAIR AT THIS TIME. PT WAS ESCORTED TO LOBBY WITH ALL BELONGINGS IN STABLE CONDITION WHERE FAMILY WAS WAITING WITH VEHICLE.
== END 2018-09-15 12:30 | disposition home or self-care (01) | DRG 383 ==
LOC: MED 05:04 → MTU 08:20
PROVIDERS: ADMIT General Practice; ATTEND General Practice
DX: L02.211 Cutaneous abscess of abdominal wall (principal); E11.69 Type 2 diabetes mellitus with other specified complication; D68.59 Other primary thrombophilia; E11.65 Type 2 diabetes mellitus with hyperglycemia; E83.42 Hypomagnesemia; N39.0 Urinary tract infection, site not specified; B96.20 Unspecified Escherichia coli [E. coli] as the cause of diseases classified elsewhere; E87.1 Hypo-osmolality and hyponatremia; E87.6 Hypokalemia; I10 Essential (primary) hypertension; E78.5 Hyperlipidemia, unspecified; Z16.12 Extended spectrum beta lactamase (ESBL) resistance; E78.00 Pure hypercholesterolemia, unspecified; Z90.49 Acquired absence of other specified parts of digestive tract; Z79.82 Long term (current) use of aspirin; Z79.84 Long term (current) use of oral hypoglycemic drugs; Z79.899 Other long term (current) drug therapy
CPT/HCPCS: 36415; 71045; 76705; 80048; 80053; 80305; 81001; 81025; 82948; 83036; 83605; 83690; 83735; 83880; 84100; 84443; 85025; 85610; 85730; 87040; 87070; 87075; 87081; 87086; 87186; 87205; 96361; 96365; 96375; 99285; J1815; J2001; J2185; J2270; J2405; J2543; J2997; J3370; J3475; J3480; J7030; J7060; Q0092; Q9967

== ENCOUNTER 2019-03-12 17:51 | Emergency (ER) | payer MEDICAID ==
[~2019-03-12] VITALS: Ht 157.5 cm; Wt 57.2 kg
[~2019-03-12 17:51] MED LIST changes: +AMOX-999 PO; -ASPI-1718 PO; +CIPR500T4 PO; -GLU500 PO; -IBUP-2213 PO; +LACT1.4C PO; +METF850T PO
[2019-03-12 18:19] VITALS: BP 136/91
--- NOTE | 2019-03-12 18:25 | NUR ---
URINE CUP HANDED TO PT FOR SAMPLE
[2019-03-12 19:14] LABS: APPEARANCE,URINE CLEAR (CLEAR); BILIRUBIN,URINE NEGATIVE (NEGATIVE); BLOOD, URINE TRACE-I (NEGATIVE); COLOR,URINE YELLOW (YELLOW); LEUKOCYTE ESTERASE ,URINE NEGATIVE (NEGATIVE); NITRITE, URINE NEGATIVE (NEGATIVE); PH,URINE 5.5 (5.0-9.0); UGLUCOSE 3+ (NEGATIVE)
[2019-03-12 19:27] LABS: RBC,URINE 0-5 /HPF (0-5); WBC,URINE 0-5 /HPF (0-5)
[2019-03-12 20:05] LABS: BASOPHILS % (AUTO) 0.2 % (0.0-2.0); EOSINOPHILS % (AUTO) 0.8 % (0.0-4.0); HEMATOCRIT 40.8 % (36-48); HEMOGLOBIN 13.7 g/dL (12.0-16.0); LYMPHOCYTES # (AUTO) 1.7 K/uL (2.5-16.5); LYMPHOCYTES % (AUTO) 36.5 % (20.5-51.1); MEAN CORPUSCULAR HEMOGLOBIN 31 pg (27-31); MEAN CORPUSCULAR HGB CONC 34 g/dL (33-37); MEAN CORPUSCULAR VOLUME 90.7 fL (80-94); MONOCYTES # (AUTO) 0.3 K/uL (0.8-1.0); MONOCYTES % (AUTO) 6.3 % (1.7-9.3); NEUTROPHILS # (AUTO) 2.6 K/uL (1.8-7.7); NEUTROPHILS % (AUTO) 56.2 % (42.2-75.2); PLATELET COUNT (AUTO) 332 K/uL (140-450); RED CELL DISTRIBUTION WIDTH 12.5 % (11.6-13.7); WHITE BLOOD COUNT (AUTO) 4.6 K/uL (4.8-10.8)
[2019-03-12 20:28] LABS: ALBUMIN 3.7 g/dL (3.4-5.0); ANION GAP 13.2 (8-16); CARBON DIOXIDE 26.7 mmol/L (21-32); CREATININE 0.7 mg/dL (0.6-1.3); POTASSIUM 3.9 mmol/L (3.5-5.1); TOTAL BILIRUBIN 0.3 mg/dL (0.0-1.0)
[2019-03-12 20:29] LABS: PROTHROMBIN TIME 8.7 secs (10.8-13.4)
--- NOTE | 2019-03-12 20:40 | NUR ---
48 Y/O FEMALE C/O HIGH BLOOD SUGAR X TODAY. PT SATETS SHE HAS VAZQUEZ, BILAT KNEE SWELLING AND PAIN AND BILAT PELVIC PAIN SINCE THRUSDAY. LUNG SOUNDS CLEAR ALL THORUGHOUT, HEART SOUNDS S1S2 PRESENT. DENIES ANY FALL OR INJURIES. TEDNERNESS TO TOUCH ON PEVLIC REGION AND BILAT KNEES. STEAYD GAIT. A & X 4. NO DISTRESS NOTED. BS WAS 332. ABD IS ACTIVE BS, ROUND, SOFT, AND NONTENDER. PT ALSO HAS BURNING SENSATION WHEN SHE PEES, DENIES BLOOD IN URINE. RATES PAIN 8/10 AND DESCRIBES IT PRESSURE. NKA. PMH; OSTEOPOROSIS, DM, HIGH XHOLESTEROL, HTN, PANCREATITIS.
--- NOTE | 2019-03-12 20:40 | NUR ---
ABD: RT QUAD PAIN AND TENDERNESS.
--- NOTE | 2019-03-12 20:40 | NUR ---
PT AMBULATED TO BED 02
[2019-03-12] MEDS ORDERED: NACL 0.9% 1,000 ML IV ONE ×2 (21:00→22:20)
[2019-03-12] MEDS ORDERED: INSULIN REGULAR, HUMAN 100 UNIT/ML VIAL IVP ONE (21:00)
[2019-03-12] MEDS ORDERED: KETOROLAC 30 MG/ML VIAL IVP ONE (22:20)
[2019-03-12] MEDS ORDERED: ONDANSETRON 4 MG/2 ML VIAL IVP ONE (22:20)
--- NOTE | 2019-03-12 22:32 | NUR ---
US AT BEDSIDE.
[2019-03-13 01:00] VITALS: BP 128/74
--- NOTE | 2019-03-13 01:00 | NUR ---
Patient discharged with v/s stable. Written and verbal after care instructions given and explained. Patient alert, oriented and verbalized understanding of instructions. Ambulatory with steady gait. All questions addressed prior to discharge. ID band removed. Patient advised to follow up with PMD. Rx of tramadol, zofran, and motrin given. Patient educated on indication of medication including possible reaction and side effects. Opportunity to ask questions provided and answered.
== END 2019-03-13 01:00 | disposition home or self-care (01) ==
LOC: MED 17:51
DX: R10.2 Pelvic and perineal pain (principal); M25.561 Pain in right knee; M25.562 Pain in left knee; E11.9 Type 2 diabetes mellitus without complications; I10 Essential (primary) hypertension; Z90.49 Acquired absence of other specified parts of digestive tract; Z79.84 Long term (current) use of oral hypoglycemic drugs; Z79.899 Other long term (current) drug therapy
CPT/HCPCS: 36415; 76856; 80053; 81001; 82948; 83690; 85025; 85610; 96361; 96374; 96375; 99284; J1815; J1885; J2405; J7030; Q0092

== ENCOUNTER 2020-01-15 10:47 | Observation (INO) | payer MEDICAID, SELFPAY ==
[~2020-01-15] VITALS: Ht 157.5 cm; Wt 60.8 kg
[2020-01-15] MEDS: BLOOD GLUCOSE MONITORING 1 DEV DEV FS SCH ×3 (06:26→21:40)
[2020-01-15 10:51] VITALS: BP 135/79
--- NOTE | 2020-01-15 10:53 | NUR ---
Patient ambulated to bed 3. RN evaluating patient at bedside.
--- NOTE | 2020-01-15 11:13 | NUR ---
49/F C/O 1 EPISODE OF HEMOPTYSIS ON WEDNESDAY, PER PT, SMALL SPECKS OF DARK RED BLOOD APPEARED ON HER MASK AFTER COUGHING. PT ALSO C/O INTERMITTENT 7/10 EPIGASTRIC PAIN WITH OCCASIONAL RADIATION TO THE BACK. STATES NAUSEA, FEW EPISODES SMALL AMOUNT OF EMESIS, OCCASIONAL DYSPNEA. DENIES DIARRHEA, CHEST PAIN, FEVER. HX: DM, HTN, GASTRIC ULCERS
--- NOTE | 2020-01-15 11:28 | NUR ---
DIRECTOR NURSERY SCHOOL AT BEDSIDE FOR BLOOD DRAW. DRAINAGE DESIGN COORDINATOR WAITING OUTSIDE ROOM.
[2020-01-15 11:38] LABS: BASOPHILS % (AUTO) 0.3 % (0.0-2.0); EOSINOPHILS % (AUTO) 0.7 % (0.0-4.0); LYMPHOCYTES # (AUTO) 1.6 K/uL (2.5-16.5); LYMPHOCYTES % (AUTO) 31.1 % (20.5-51.1); MEAN CORPUSCULAR HEMOGLOBIN 30 pg (27-31); MEAN CORPUSCULAR HGB CONC 34 g/dL (33-37); MEAN CORPUSCULAR VOLUME 88.8 fL (80-94); MONOCYTES # (AUTO) 0.3 K/uL (0.8-1.0); MONOCYTES % (AUTO) 6.3 % (1.7-9.3); NEUTROPHILS # (AUTO) 3.2 K/uL (1.8-7.7); NEUTROPHILS % (AUTO) 61.6 % (42.2-75.2); PLATELET COUNT (AUTO) 295 K/uL (140-450); RED BLOOD CELL COUNT(AUTO) 4.61 MIL/uL (4.20-5.40); RED CELL DISTRIBUTION WIDTH 12.1 % (11.6-13.7); WHITE BLOOD COUNT (AUTO) 5.1 K/uL (4.8-10.8)
[2020-01-15] MEDS ORDERED: KETOROLAC 60 MG/2 ML VIAL IM ONE (11:40)
[2020-01-15 11:45] LABS: ANION GAP 10.7 (8-16); CARBON DIOXIDE 27.6 mmol/L (21-32); CREATININE 0.6 mg/dL (0.6-1.3); POTASSIUM 4.3 mmol/L (3.5-5.1)
[2020-01-15 11:51] LABS: ALBUMIN 3.6 g/dL (3.4-5.0); TOTAL BILIRUBIN 0.8 mg/dL (0.0-1.0)
--- NOTE | 2020-01-15 13:05 | NUR ---
Dr. Harris is evaluating the patient at bedside.
--- NOTE | 2020-01-15 13:15 | NUR ---
PT STATES FEELS "BETTER", PAIN DECREASED TO 4/10
--- NOTE | 2020-01-15 15:33 | NUR ---
COVID RICHELLE SWAB COLLECTED AND SENT TO LAB
[2020-01-15] MEDS ORDERED: POTASSIUM CHLORIDE 10 MEQ TABER PO PRN (15:50)
[2020-01-15] MEDS ORDERED: DEXTROSE 50% 50 ML SYR IVP PRN (15:50)
[2020-01-15] MEDS ORDERED: DOCUSATE SODIUM 100 MG GELCAP PO PRN (15:50)
[2020-01-15] MEDS ORDERED: ONDANSETRON 4 MG/2 ML VIAL IM/IVP PRN (15:50)
[2020-01-15] MEDS ORDERED: ACETAMINOPHEN 325 MG TAB PO PRN (15:50)
[2020-01-15] MEDS ORDERED: HYDROcodone/APAP 7.5/325 MG 1 TAB PO PRN (15:50)
[2020-01-15] MEDS ORDERED: INSULIN LISPRO SLIDING SCALE 100 UNITS/ML VIAL SUBQ PRN (15:50)
[2020-01-15 16:25] LABS: PROTHROMBIN TIME 9.3 secs (10.8-13.4)
[2020-01-15 16:39] LABS: CHOL/HDL RATIO 5.3 (1-4.5); FREE T4 (FREE THYROXINE) 1.2 ng/dL (0.76-1.46); MAGNESIUM 1.7 mg/dL (1.8-2.4); PHOSPHORUS 3.5 mg/dL (2.5-4.9); THYROID STIMULATING HORMONE 1.5 uIU/mL (0.34-3.74)
--- NOTE | 2020-01-15 18:59 | NUR ---
PT DOES NOT HAVE HOME MED LIST, UNABLE TO RECALL FROM [facility], AND STATES NO ONE AT HOME TO SEND MED LIST.
--- NOTE | 2020-01-15 19:22 | NUR ---
REPORT TO SOHAM MAE; TRANSFER OF CARE AT THIS TIME
--- NOTE | 2020-01-15 19:30 | NUR ---
RECIVED REPORT FROM MOHAN ROUSSEAU. CONTINUATION OF CARE GIVEN. PT NOTIFED OF ADMIT. PT VSS. BS: 183. PT DENIES PAIN A&O X 4. DENIES PAIN OR N/V.
--- NOTE | 2020-01-15 20:09 | NUR ---
Patient will be admitted to care of . Admited to TELE. Will go to room 106B. Belongings list completed. Report to FRANK ROUSSEAU. ETA TO FLOOR: 15 MIN.
--- NOTE | 2020-01-15 20:26 | NUR ---
PT TAKEN TO TELE BY PRIMARY NURSE.
--- NOTE | 2020-01-15 20:35 | NUR ---
FRANK INFORMED OF PT ARRIVAL TO BED 106 B. TRANSFER OF CARE.
[2020-01-15 20:36] VITALS: BP 140/60
--- NOTE | 2020-01-15 20:36 | NUR ---
RECEIVED PT AAOX4 FROM ER / WHEELCHAIR . IV SITE INTACT AND PATENT . AMBULATES TO BED . NPO POST MN - REMINDS HER . SAFETY MEASURES IN PLACE . CALL LIGHT WITHIN REACH . ON TELE MONITOR - SR . POC DISCUSSED AND VERBALIZE UNDERSTANDING . WILL CONT. TO MONITOR
[2020-01-15] MEDS: INSULIN LANTUS 100 UNITS/ML 10 ML VIAL SUBQ SCH (21:00)
[2020-01-15] MEDS: NACL 0.9% 1,000 ML IV SCH (21:00)
[2020-01-15] MEDS: metFORMIN 850 MG TAB PO SCH (21:00)
--- NOTE | 2020-01-15 21:56 | NUR ---
RELAYING TO DR. VASQUEZ - PT 'S MAG - 1.6 - WILL WAIT FOR RESPONSE. Addendum: 01/15/20 at 2202 by Radha Geller RN STILL FOR URINE COLLECTION Addendum: 01/16/20 at 0824 by Radha Geller RN ALSO RELAYING TO DR. VASQUEZ PT. IS DIABETIC - PRESENT IVF NSS AND WILL BE NPO POST MN
[2020-01-15 22:18] LABS: BILIRUBIN,URINE NEGATIVE (NEGATIVE); BLOOD, URINE 3+ (NEGATIVE); COLOR,URINE YELLOW (YELLOW); LEUKOCYTE ESTERASE ,URINE NEGATIVE (NEGATIVE); NITRITE, URINE POSITIVE (NEGATIVE); UGLUCOSE 3+ (NEGATIVE)
[2020-01-15 22:23] LABS: APPEARANCE,URINE HAZY (CLEAR)
[2020-01-15 22:35] LABS: WBC,URINE 20-60 /HPF (0-5)
[2020-01-15 22:36] LABS: BARBITURATE, URINE NEGATIVE ng/ml (NEG <=200); BENZODIAZEPINE, URINE NEGATIVE ng/mL (NEG <=200); CANNABINOID, URINE NEGATIVE ng/mL (NEG <=50); COCAINE, URINE NEGATIVE ng/mL (NEG <=300); OPIATE, URINE NEGATIVE ng/mL (NEG <=2000); PHENCYCLIDINE SCREEN,URINE NEGATIVE ng/mL (NEG <=25)
--- NOTE | 2020-01-16 | NUR ---
STILL NO RESPONSE TO DR. VASQUEZ .
--- NOTE | 2020-01-16 00:41 | NUR ---
BLOOD SUGAR CHECK - 343 - NPO - PRESENT IVF IS NSS - I TEXTED DR. VASQUEZ WHILE AGO BEFORE 12MN - I REMINDED HIM THE PT WILL BE ON NPO POST MN AND PRESENT IV IS NSS - HE DID NOT ORDER ANYTHING FOR THAT - THERE IS D50/50 PRN ON EMAR . ALSO REFERED TO DR. VASQUEZ THE SERUM MAG IS LOW - NO ORDER FOR THIS .
--- NOTE | 2020-01-16 04:00 | NUR ---
MADE ROUNDS . NO S/SX OF ACUTE DISTRESS NOTED .
--- NOTE | 2020-01-16 06:00 | NUR ---
MADE ROUNDS . NO COMPLAIN MADE .
--- NOTE | 2020-01-16 07:00 | NUR ---
CONSENT SIGNED - FOR CT ABD/ PELVIS W/ CONTRAST - WILL ENDORSED
[2020-01-16 07:15] LABS: BASOPHILS % (AUTO) 0.2 % (0.0-2.0); EOSINOPHILS % (AUTO) 0.7 % (0.0-4.0); HEMATOCRIT 40.1 % (36-48); HEMOGLOBIN 13.6 g/dL (12.0-16.0); LYMPHOCYTES # (AUTO) 1.4 K/uL (2.5-16.5); LYMPHOCYTES % (AUTO) 33.1 % (20.5-51.1); MEAN CORPUSCULAR HEMOGLOBIN 30 pg (27-31); MEAN CORPUSCULAR HGB CONC 34 g/dL (33-37); MEAN CORPUSCULAR VOLUME 89.9 fL (80-94); MONOCYTES # (AUTO) 0.3 K/uL (0.8-1.0); MONOCYTES % (AUTO) 6.7 % (1.7-9.3); NEUTROPHILS # (AUTO) 2.6 K/uL (1.8-7.7); NEUTROPHILS % (AUTO) 59.3 % (42.2-75.2); PLATELET COUNT (AUTO) 286 K/uL (140-450); RED BLOOD CELL COUNT(AUTO) 4.46 MIL/uL (4.20-5.40); RED CELL DISTRIBUTION WIDTH 12.3 % (11.6-13.7); WHITE BLOOD COUNT (AUTO) 4.4 K/uL (4.8-10.8)
[2020-01-16 07:21] LABS: CARBON DIOXIDE 25.7 mmol/L (21-32); CREATININE 0.6 mg/dL (0.6-1.3); POTASSIUM 3.7 mmol/L (3.5-5.1)
[2020-01-16 07:23] LABS: MAGNESIUM 1.9 mg/dL (1.8-2.4); PHOSPHORUS 3.9 mg/dL (2.5-4.9)
--- NOTE | 2020-01-16 07:33 | NUR ---
ENDORSED TO AM SHIFT PT FOR CT SCAN ABD/ PELVIS W/ CONTRAST . PT SIGNED THE CONSENT BUT DOCTOR HAVE TO SIGN IT . CT SCAN AWARE ABOUT IT . ENDORSE TO AM NURSE PT HAS DM REFERRED TO DR. VASQUEZ LAST NIGHT ABOUT THE ONGOING NSS AND THE LOW SERUM MAG . BUT NO FURTHER ORDER ABOUT IT - INFORM AM NURSE TO REMIND DR. VASQUEZ ABOUT IT .ENDORSE TO AM SHIFT FOLLOW UP THE RESULT OF URINE EXAM . URINE JUST SENT TO LAB . PT HAD MONTHLY PERIOD 2 WEEKS AGO . ENDORSED.
[2020-01-16] MEDS: metFORMIN 850 MG TAB PO SCH ×3 (08:00→17:00)
--- NOTE | 2020-01-16 08:00 | NUR ---
RECEIVED REPORT FROM NIGHTSHIFT NURSE. PATIENT IS READY FOR CT ABD/PELVIS W/ CONTRAST. PATIENT HAS BEEN MAINTAINED NPO. MORNING MEDS WERE GIVEN METFORMIN WAS HELD.
[2020-01-16 08:11] LABS: T4 (THYROXINE) 7.9 ug/dL (4.5-12.0)
--- NOTE | 2020-01-16 08:37 | NUR ---
AM GLUCOPHAGE WAS HELD. PATIENT GOING TO CT FOR ABD W/ CONTRAST CT.
--- NOTE | 2020-01-16 08:46 | NUR ---
PATIENT HAS BEEN SCREENED AND CATEGORIZED MODERATE NUTRITION RISK. PATIENT WILL BE SEEN WITHIN 3-5 DAYS OF ADMISSION. 01/18/20 01/20/[address]
[2020-01-16] MEDS: INSULIN LANTUS 100 UNITS/ML 10 ML VIAL SUBQ SCH ×2 (09:00→21:00)
[2020-01-16] MEDS: LACTOBACILLUS RHAMNOSUS GG 1 EACH CAP PO SCH (09:00)
[2020-01-16] MEDS ORDERED: NON-FORMULARY ITEM (L. Acidophilus/L.bulgaricus (Lactinex Chewable Tablet) 1.4 MG) PO SCH (09:00)
[2020-01-16] MEDS: NACL 0.9% 1,000 ML IV SCH (09:12)
--- NOTE | 2020-01-16 10:58 | NUR ---
SOCIAL WORK NOTE: Patient's Orientation Unable To Assess Information Provided By EDUARDO GOMEZ - SON Comments SW WAS UNABLE TO MEET PATIENT AT BEDSIDE DUE TO MEDICAL CONDITION. SW COMPLETED ASSESSMENT [facility] PATIENT'S CHILD, EDUARDO. Dampener, Realtionship and Phone Number EDUARDO GOMEZ SON [phone] Healthcare Power of Vp Data No Does Patient Have a POLST No Identifying Problems No Social Work Triggers Is A Social Work Consult Needed No Mandate Report Filed No Explanation Of Identifying Problems PATEINT IS A 49-YEAR-OLD MALE ADMITTED FOR GI BLEED. PATIENT HAS PMHX OF DIABETES, HYPERTENSION, GERD, AND OSTEOPOROSIS. PER PATIENT'S SON, PATIENT HAS NO HISTORY OF SUBSTANCE ABUSE OR MENTAL HEALTH. Admitted From Home Pre-Admission Level Of Functioning Status Independent/Ambulatory Prior Resources/Services Used In Last 12 Months No Prior Resources Used Prior DME No Prior DME Used Dialysis Comments N/A Living Situation Lives With Family House Patient Had Caregiver No Home Support No Caregiver Issues Financial Issues No Known Financial Issue Referral To The Financial Counselor Needed No Factors/Needs No D/C Needs Identified Explanation And Or Other Factors Affecting/Possible DC Needs PATIENT'S SON STATED HE WOULD PICK PATIENT UP AT DISCHARGE. Pt/Rep Participated In Discharge Plan Yes Patient/Family Agress With Discharge Plan Yes Discharge Plan Comments TENTATIVE DISCHARGE PLAN IS FOR PATIENT TO RETURN HOME DC Plan Status Initiated
--- NOTE | 2020-01-16 11:23 | NUR ---
DISCHARGE PLANNING: THIS IS A 49 Y/O FEMALE PATIENT FROM HOME, WHO CAME IN DUE TO COUGHING BLOOD AND DARK STOOLS. PAST MEDICAL HISTORY INCLUDE DIABETES, HTN, GERD, OSTEOPOROSIS, PEPTIC ULCER AND HYPERLIPIDEMIA. INITIAL DIAGNOSIS OF GI BLEED. CURRENT LABS INCLUDE WBC 4.4, H/H 13.6/40.1, NA/K 141/3.7, BUN/CREA 22/0.3. RAPID COVID TEST NEGATIVE. ON ROCEPHIN, INSULIN SLIDING SCALE. GI CONSULT IN PLACE. DC PLAN BACK TO HOME ONCE STABLE. Addendum: 01/17/20 at 1123 by Aziza Garcia CM S/P EGD BY DR. RENEE 01/16/2020 - NORMAL UPPER GI TRACT. STARTED PATIENT ON CONSISTENT CARB DIET. PER CHARGE NURSE ABENA, DR. RENEE IS DISCHARGING THE PATIENT.
[2020-01-16] MEDS: BLOOD GLUCOSE MONITORING 1 DEV DEV FS SCH ×3 (12:09→21:00)
--- NOTE | 2020-01-16 12:22 | NUR ---
PATIENT STILL HAS NOT BEEN TAKEN DOWN TO CT, STILL NPO FOR CT W/ CONTRAST. 1200 METFORMIN WAS HELD. PATIENT BG [id number], NO INSULIN WAS GIVEN PATIENT NPO.
[2020-01-16 13:14] VITALS: BP 93/62
[2020-01-16] MEDS ORDERED: diphenhydrAMINE 50 MG/ML VIAL ONE (14:40)
[2020-01-16] MEDS ORDERED: MIDAZOLAM 5 MG/5 ML VIAL ONE (14:40)
[2020-01-16] MEDS ORDERED: fentaNYL citrate 0.05 MG/ML VIAL ONE (14:41)
--- NOTE | 2020-01-16 14:50 | NUR ---
PATIENT TAKEN DOWN FOR EGD PROCEDURE.
[2020-01-16] MEDS ORDERED: MIDAZOLAM 2 MG/2 ML VIAL IVP ONE (15:20)
[2020-01-16] MEDS ORDERED: fentaNYL citrate 0.05 MG/ML VIAL IVP ONE (15:20)
--- NOTE | 2020-01-16 15:25 | NUR ---
PATIENT RETURNED FROM EGD PROCEDURE. SPOKE TO DR VASQUEZ, STAT CT W/ CONTRAST WILL HAVE TO WAIT DUE TO PATIENT HAVING EGD COMPLETED NOW AND CAN INTERFERE WITH THE CT.
[2020-01-16] MEDS ORDERED: MAGNESIUM CITRATE 300 ML BTL PO SCH (15:29)
--- NOTE | 2020-01-16 17:30 | NUR ---
METFORMING 1700 WAS HELD DUE TO PATIENT STILL HAVING TO GO TO CT W/ CONTRAST LATER ON.
--- NOTE | 2020-01-16 18:10 | NUR ---
PATIENT TRIED TO EAT, GOT NAUSEOUS, AND THREW UP A BIT. NAUSEA MED WAS OFFERED, PATIENT REFUSED. PATIENT ATTEMPTED TO EAT AGAIN, AND WAS ABLE TO START HOLDING FOOD.
--- NOTE | 2020-01-16 19:25 | NUR ---
RECEIVED BEDSIDE ENDORSEMENT FROM AM SHIFT RN. AOX4, NO SOB, INTACT SKIN, IVF INFUSING, AMBULATORY, SAFETY MEASURES IN PLACE, LOW BED IN PLACE, PLAN OF CARE DISCUSSED, CALL LIGHT WITHIN REACH.
--- NOTE | 2020-01-16 22:00 | NUR ---
PT AWAKE, KEPT COMFORTABLE.
[2020-01-17] MEDS: NACL 0.9% 1,000 ML IV SCH (01:10)
--- NOTE | 2020-01-17 01:25 | NUR ---
IV SITE DISLODGED, MINIMAL BLOOD NOTED, CLEANED W/ NS AND COVERED W/ DRY DRESSING. RE-INSERTED AT RFA 20 G, W/ GOOD BLOOD RETURN, ATTEMPTED X1, TOLERATED PROCEDURE WELL, CALL LIGHT WITHIN REACH.
--- NOTE | 2020-01-17 04:00 | NUR ---
V/S TAKEN, NO SOB, RESPIRATION EVEN AND UNLABORED.
[2020-01-17 06:02] LABS: CORRECTED WHITE BLOOD COUNT 4.8 K/uL (4.5-11.0); RED BLOOD CELL COUNT(AUTO) 4.24 MIL/uL (4.20-5.40); WHITE BLOOD COUNT (AUTO) 4.8 K/uL (4.8-10.8)
[2020-01-17 06:03] LABS: BASOPHILS % (AUTO) 0.4 % (0.0-2.0); EOSINOPHILS # (AUTO) 0.1 K/uL (0-0.4); EOSINOPHILS % (AUTO) 1.1 % (0.0-4.0); HEMATOCRIT 37.8 % (36-48); LYMPHOCYTES # (AUTO) 2.1 K/uL (2.5-16.5); LYMPHOCYTES % (AUTO) 44.2 % (20.5-51.1); MEAN CORPUSCULAR HEMOGLOBIN 31 pg (27-31); MEAN CORPUSCULAR HGB CONC 34 g/dL (33-37); MEAN CORPUSCULAR VOLUME 89.1 fL (80-94); MONOCYTES # (AUTO) 0.3 K/uL (0.8-1.0); NEUTROPHILS # (AUTO) 2.3 K/uL (1.8-7.7); NEUTROPHILS % (AUTO) 47.3 % (42.2-75.2); PLATELET COUNT (AUTO) 273 K/uL (140-450); RED CELL DISTRIBUTION WIDTH 12.4 % (11.6-13.7)
[2020-01-17 06:44] LABS: MAGNESIUM 1.9 mg/dL (1.8-2.4); PHOSPHORUS 2.9 mg/dL (2.5-4.9)
[2020-01-17 06:46] LABS: ANION GAP 13.2 (8-16); CREATININE 0.4 mg/dL (0.6-1.3); POTASSIUM 3.2 mmol/L (3.5-5.1)
[2020-01-17] MEDS: BLOOD GLUCOSE MONITORING 1 DEV DEV FS SCH ×2 (07:04→11:35)
--- NOTE | 2020-01-17 07:30 | NUR ---
PT IS IN STABLE CONDITION, NO DISTRESS, BEDSIDE ENDORSEMENT GIVEN TO AM SHIFT RN FOR CONTINUITY OF CARE.
[2020-01-17] MEDS: metFORMIN 850 MG TAB PO SCH ×3 (08:00→11:36)
--- NOTE | 2020-01-17 08:15 | NUR ---
PATIENT IS SITTING UP IN BED. VS ARE STABLE. NO COMPLAINTS OF PAIN OR DISCOMFOR TATHIS TIME/ Addendum: 01/17/20 at 1115 by Agency 01 RN RN PATIENT IS SITTING UP IN BED. VS ARE STABLE. NO COMPLAINTS OF PAIN OR DISCOMFORT AT THIS TIME. PATIENT AM MEDS GIVEN, METFORMIN WAS HELD DUE TO CONTRAST USED IN CT. ALL NEEDS MET FOR NOW.
[2020-01-17] MEDS: LACTOBACILLUS RHAMNOSUS GG 1 EACH CAP PO SCH (10:18)
[2020-01-17] MEDS: INSULIN LANTUS 100 UNITS/ML 10 ML VIAL SUBQ SCH (10:30)
[2020-01-17] MEDS ORDERED: FAMO-90 PO (11:34)
--- NOTE | 2020-01-17 13:40 | NUR ---
RECEIVED ORDER FOR PATIENT TO BE DC'D.
--- NOTE | 2020-01-17 13:45 | NUR ---
PATIENT STABLE, ALL VS STABLE. NO COMPLAINTS OF PAIN OR DISCOMFORT.
[2020-01-17 13:54] VITALS: BP 119/68
--- NOTE | 2020-01-17 14:46 | NUR ---
PATIENT READY TO BE DC'D ALL DISCHARGE PAPERS SIGNED. NO COMPLAINS OF DISCOMFORT OR PAIN. NO SOB. NO N/V. VITALS STABLE. PATIENT READY TO BE PICKED UP.
== END 2020-01-17 14:50 | disposition home or self-care (01) ==
LOC: MED 10:47 → MTU 15:46
PROVIDERS: ADMIT Emergency Medicine; ATTEND Emergency Medicine
DX: K92.0 Hematemesis (principal); Z20.828 Contact with and (suspected) exposure to other viral communicable diseases; K92.1 Melena; E11.65 Type 2 diabetes mellitus with hyperglycemia; I10 Essential (primary) hypertension; K21.9 Gastro-esophageal reflux disease without esophagitis; M81.0 Age-related osteoporosis without current pathological fracture; E78.5 Hyperlipidemia, unspecified; N39.0 Urinary tract infection, site not specified; Z87.11 Personal history of peptic ulcer disease; Z90.49 Acquired absence of other specified parts of digestive tract; Z79.4 Long term (current) use of insulin; Z79.899 Other long term (current) drug therapy
CPT/HCPCS: 36415; 43239; 71045; 74177; 80048; 80053; 80061; 80305; 81001; 82948; 83036; 83690; 83735; 83880; 84100; 84439; 84443; 85025; 85610; 85730; 86677; 87081; 87086; 87426; 96361; 96365; 96366; 96372; 99285; G0378; J0696; J1815; J1885; J2250; J3010; J7030; J7060; Q9967; 84436; 84479; J1200

== ENCOUNTER 2020-02-28 06:29 | Emergency (ER) | payer MEDICAID, SELFPAY ==
[~2020-02-28] VITALS: Ht 157.5 cm; Wt 59.0 kg
[~2020-02-28 06:29] MED LIST changes: +FAMO-90 PO
[2020-02-28 07:10] VITALS: BP 109/67
--- NOTE | 2020-02-28 07:10 | NUR ---
TO TENT AMBULATORY
[2020-02-28] MEDS ORDERED: KETOROLAC 60 MG/2 ML VIAL IM ONE (07:45)
--- NOTE | 2020-02-28 08:00 | NUR ---
49 y/o femal presented to ED c/o cough, sob & body aches. Pt tested + covid 02/20/20. Pt describes sharp constant 10/10 pain throughtout body. Pt chest pain described as body aches. Pt denies n/v/d/chills, fever. Pt just finished z-april. Pt took tylenol & advil w/o improvement in pain. RR even and unlabored. a/o x 4. Pt sitting in tent w/ family, no acute distress noted. ERMD made aware of pt status. nka
[2020-02-28 08:08] VITALS: BP 109/67
--- NOTE | 2020-02-28 08:08 | NUR ---
Patient discharged with v/s stable. Written and verbal after care instructions given and explained. Patient alert, oriented and verbalized understanding of instructions. Ambulatory with steady gait. All questions addressed prior to discharge. ID band removed. Patient advised to follow up with PMD. Rx of Motrin 600mg, Zofran 8mg, [place] 5mg-325mg given. Patient educated on indication of medication including possible reaction and side effects. Opportunity to ask questions provided and answered.
== END 2020-02-28 08:08 | disposition home or self-care (01) ==
LOC: MED 06:29
DX: U07.1 COVID-19 (principal); R05 Cough; M79.10 Myalgia, unspecified site; E11.9 Type 2 diabetes mellitus without complications; K21.9 Gastro-esophageal reflux disease without esophagitis; I10 Essential (primary) hypertension; Z90.49 Acquired absence of other specified parts of digestive tract; Z98.890 Other specified postprocedural states; Z79.84 Long term (current) use of oral hypoglycemic drugs; Z79.899 Other long term (current) drug therapy
CPT/HCPCS: 96372; 99283; J1885

== ENCOUNTER 2021-04-17 19:07 | Emergency (ER) | payer MEDICAID ==
[~2021-04-17] VITALS: Ht 152.9 cm; Wt 65.5 kg
[2021-04-17 19:27] VITALS: BP 133/77
--- NOTE | 2021-04-17 19:33 | NUR ---
PT AMB TO BED 1.
--- NOTE | 2021-04-17 19:50 | NUR ---
patient bib self from home. patient was at dr office and was referred to go straight to the ED. patient c/o L foot pain x2wks that could possibly be osteomyelitis and with wound on the 4th digit and wound on the plantar near the digits-- patient was placed on antibx for 1wk but with no progress on the wound. patient c/o n/v/d along with blood in the stool for x5days. pmh: DM, osteoporosis, HTN, ulcers, HLD NKA
[2021-04-17] MEDS ORDERED: NACL 0.9% 1,000 ML IV ONE ×2 (19:55→21:30)
--- NOTE | 2021-04-17 20:19 | NUR ---
BLOOD, RICHELLE RATLIFF, UA SENT TO LAB
[2021-04-17 20:27] LABS: BASOPHILS % (AUTO) 0.4 % (0.0-2.0); EOSINOPHILS % (AUTO) 0.8 % (0.0-4.0); HEMATOCRIT 38.8 % (36-48); LYMPHOCYTES # (AUTO) 1.8 K/uL (2.5-16.5); LYMPHOCYTES % (AUTO) 39.7 % (20.5-51.1); MEAN CORPUSCULAR HEMOGLOBIN 30 pg (27-31); MEAN CORPUSCULAR HGB CONC 34 g/dL (33-37); MEAN CORPUSCULAR VOLUME 90.6 fL (80-94); MONOCYTES # (AUTO) 0.3 K/uL (0.8-1.0); MONOCYTES % (AUTO) 7.2 % (1.7-9.3); NEUTROPHILS # (AUTO) 2.4 K/uL (1.8-7.7); NEUTROPHILS % (AUTO) 51.9 % (42.2-75.2); PLATELET COUNT (AUTO) 295 K/uL (140-450); RED BLOOD CELL COUNT(AUTO) 4.29 MIL/uL (4.20-5.40); RED CELL DISTRIBUTION WIDTH 12.2 % (11.6-13.7); WHITE BLOOD COUNT (AUTO) 4.6 K/uL (4.8-10.8)
[2021-04-17 20:28] LABS: BILIRUBIN,URINE NEGATIVE (NEGATIVE); BLOOD, URINE 1+ (NEGATIVE); COLOR,URINE YELLOW (YELLOW); LEUKOCYTE ESTERASE ,URINE NEGATIVE (NEGATIVE); NITRITE, URINE NEGATIVE (NEGATIVE); PH,URINE 5.5 (5.0-9.0); UGLUCOSE 3+ (NEGATIVE)
--- NOTE | 2021-04-17 20:28 | NUR ---
Dr. Muller examining patient.
[2021-04-17] MEDS ORDERED: PANTOPRAZOLE 40 MG INJ VIAL IVP ONE (20:30)
[2021-04-17] MEDS ORDERED: ONDANSETRON 4 MG/2 ML VIAL IVP ONE (20:30)
[2021-04-17 20:49] LABS: APPEARANCE,URINE SLIGHTLY CLOUDY (CLEAR)
[2021-04-17 21:02] LABS: ALBUMIN 3.6 g/dL (3.4-5.0); ANION GAP 13.2 (8-16); ASPARTATE AMINOTRANSFERASE 13 U/L (15-37); CARBON DIOXIDE 24.1 mmol/L (21-32); CHLORIDE 98 mmol/L (98-107); CREATININE 0.7 mg/dL (0.6-1.3); GFR ARICAN-AMERICAN 115 mL/min (>90); POTASSIUM 4.3 mmol/L (3.5-5.1); SODIUM SERUM 131 mmol/L (136-145); TOTAL BILIRUBIN 0.4 mg/dL (0.0-1.0); UREA NITROGEN, BLOOD 13 mg/dL (7-18)
[2021-04-17 21:04] LABS: GLUCOSE 518 mg/dL (74-106)
[2021-04-17 21:05] LABS: ACETONE, SERUM TRACE (NEGATIVE)
[2021-04-17] MEDS ORDERED: INSULIN REGULAR, HUMAN 100 UNIT/ML VIAL SUBQ ONE (21:30)
--- NOTE | 2021-04-17 22:03 | NUR ---
PT RETURN FROM RADIOLOGY
[2021-04-17 22:27] LABS: WBC,URINE 0-5 /HPF (0-5)
[2021-04-18] MEDS ORDERED: HYDROcodone/APAP 5/325 MG 1 TAB TAB PO ONE (01:45)
--- NOTE | 2021-04-18 01:51 | NUR ---
IV removed, catheter intact and site benign. Applied folded 4x4 gauze and tape to stop bleeding.
[2021-04-18 02:02] VITALS: BP 103/59
--- NOTE | 2021-04-18 02:02 | NUR ---
Patient discharged with v/s stable. Written and verbal after care instructions given and explained. Patient verbalized understanding. Ambulatory with steady gait. ID band removed. All questions addressed prior to discharge. Advised to follow up with PMD.
== END 2021-04-18 02:02 | disposition home or self-care (01) ==
LOC: MED 19:07
DX: E11.65 Type 2 diabetes mellitus with hyperglycemia (principal); Z20.822 Contact with and (suspected) exposure to COVID-19; K21.9 Gastro-esophageal reflux disease without esophagitis; I10 Essential (primary) hypertension; Z79.84 Long term (current) use of oral hypoglycemic drugs; Z79.899 Other long term (current) drug therapy
CPT/HCPCS: 36415; 71045; 73630; 74177; 80053; 81001; 81025; 82009; 82803; 82948; 83605; 83690; 84484; 85025; 86886; 86900; 86901; 87040; 87086; 87426; 93005; 96361; 96372; 96374; 96375; 99285; C9113; G0482; J1815; J2405; J7030; Q0092; Q9967

== ENCOUNTER 2021-09-22 15:20 | Emergency (ER) | payer MEDICAID ==
[~2021-09-22] VITALS: Ht 157.5 cm; Wt 61.2 kg
[~2021-09-22 15:20] MED LIST changes: +METF-713 PO; -METF850T PO
[2021-09-22 15:54] VITALS: BP 100/61
--- NOTE | 2021-09-22 16:05 | NUR ---
C/O VAZQUEZ, BODY ACHES, COUGH, SOB DURING ACTIVITY X 2 DAYS. PT STATES PERSON AT HOME TESTED POSITIVE FOR COVID. PMH: HTN, HIGH CHOL, DM, OSTEOPROSIS, STOMACH ULCERS MED: YES, UNKNOWN MED
[2021-09-22] MEDS ORDERED: ACET-9882 PO (17:51)
[2021-09-22] MEDS ORDERED: PROM118S5 PO (17:51)
[2021-09-22] MEDS ORDERED: BENZ-300 PO (17:51)
--- NOTE | 2021-09-22 18:04 | NUR ---
pt left without dx paperwork, covid and flu swabs.
[2021-09-22 20:36] VITALS: BP 100/61
--- NOTE | 2021-09-22 20:37 | NUR ---
Patient discharged by charge nurse with v/s stable. Written and verbal after care instructions given and explained. Patient alert, oriented and verbalized understanding of instructions. Ambulatory with steady gait. All questions addressed prior to discharge. ID band removed. Patient advised to follow up with PMD. Rx of tylenol, cepacol, promethazin given. Patient educated on indication of medication including possible reaction and side effects. Opportunity to ask questions provided and answered.
== END 2021-09-22 20:21 | disposition home or self-care (01) ==
LOC: MED 15:20
DX: B34.9 Viral infection, unspecified (principal); Z20.822 Contact with and (suspected) exposure to COVID-19; I10 Essential (primary) hypertension; E11.9 Type 2 diabetes mellitus without complications; K21.9 Gastro-esophageal reflux disease without esophagitis; Z79.4 Long term (current) use of insulin; Z79.899 Other long term (current) drug therapy
CPT/HCPCS: 99283

== ENCOUNTER 2023-11-22 09:25 | Inpatient (IN) | payer MEDICAID ==
[2023-11-22] VITALS (7 sets, daily range): BP systolic 107–124; BP diastolic 55–62; PULSE 78–85; RESP 17–18; TEMP 97.3–98.1; O2SAT 95–100
[~2023-11-22] VITALS: Ht 157.5 cm; Wt 52.6 kg
[~2023-11-22 09:25] MED LIST changes: +ACET-9882 PO; +BENZ-300 PO; +PROM118S5 PO
[2023-11-22] MEDS: NACL 0.9% 1,000 ML IV ONE ×2 (10:28→12:47)
[2023-11-22] MEDS ORDERED: fentaNYL citrate 0.05 MG/ML VIAL ONE (10:30)
[2023-11-22 10:41] LABS: BASOPHILS % (AUTO) 0.1 % (0.0-2.0); EOSINOPHILS % (AUTO) 0.5 % (0.0-4.0); HEMATOCRIT 36.2 % (36-48); HEMOGLOBIN 12.3 g/dL (12.0-16.0); LYMPHOCYTES # (AUTO) 1.4 K/uL (2.5-16.5); LYMPHOCYTES % (AUTO) 24.2 % (20.5-51.1); MEAN CORPUSCULAR HEMOGLOBIN 30 pg (27-31); MEAN CORPUSCULAR HGB CONC 34 g/dL (33-37); MEAN CORPUSCULAR VOLUME 88.7 fL (80-94); MONOCYTES # (AUTO) 0.4 K/uL (0.8-1.0); NEUTROPHILS % (AUTO) 68.2 % (42.2-75.2); PLATELET COUNT (AUTO) 334 K/uL (140-450); RED BLOOD CELL COUNT(AUTO) 4.08 MIL/uL (4.20-5.40); RED CELL DISTRIBUTION WIDTH 12.3 % (11.6-13.7); WHITE BLOOD COUNT (AUTO) 5.9 K/uL (4.8-10.8)
[2023-11-22 10:48] LABS: CALCIUM 9.1 mg/dL (8.5-10.1); CARBON DIOXIDE 30.3 mmol/L (21-32); CREATININE 0.8 mg/dL (0.6-1.3); POTASSIUM 4.3 mmol/L (3.5-5.1)
[2023-11-22] MEDS: ONDANSETRON 4 MG/2 ML VIAL IVP ONE (10:48)
[2023-11-22] MEDS: fentaNYL citrate 0.05 MG/ML VIAL IVP ONE (10:49)
[2023-11-22 10:55] LABS: ALBUMIN 3.4 g/dL (3.4-5.0); BILIRUBIN,DIRECT 0.1 mg/dL (0.0-0.3); TOTAL BILIRUBIN 0.7 mg/dL (0.0-1.0); TOTAL PROTEIN, SERUM 8.2 g/dL (6.4-8.2)
[2023-11-22 10:59] LABS: LACTIC ACID 0.9 mmol/L (0.4-2.0)
[2023-11-22 11:51] LABS: APPEARANCE,URINE CLEAR (CLEAR); BILIRUBIN,URINE NEGATIVE (NEGATIVE); BLOOD, URINE NEGATIVE (NEGATIVE); COLOR,URINE YELLOW (YELLOW); LEUKOCYTE ESTERASE ,URINE NEGATIVE (NEGATIVE); NITRITE, URINE NEGATIVE (NEGATIVE); PROTEIN,URINE NEGATIVE (NEGATIVE); UGLUCOSE 3+ (NEGATIVE); UROBILINOGEN,URINE 0.2 EU/dL (0.2 - 1)
[2023-11-22] MEDS ORDERED: VANCOMYCIN 1,000 MG VIAL ONE (11:56)
[2023-11-22] MEDS: VANCOMYCIN 1,000 MG in DEXTROSE 5% 250 ML IV ONE (12:43)
[2023-11-22] MEDS: INSULIN REGULAR, HUMAN 100 UNIT/ML VIAL IVP ONE (12:45)
[2023-11-22] MEDS ORDERED: DEXTROSE 50% 50 ML SYR IVP PRN (13:05)
[2023-11-22] MEDS ORDERED: ONDANSETRON 4 MG/2 ML VIAL IV PRN (13:05)
[2023-11-22] MEDS ORDERED: DOCUSATE SODIUM 100 MG GELCAP PO PRN (13:05)
[2023-11-22 13:59] LABS: INR 0.94 (0.8-1.2); PARTIAL THROMBOPLASTIN TIME 28.8 secs (22-35.6); PROTHROMBIN TIME 9.9 secs (10.8-13.4)
[2023-11-22 14:03] LABS: CHOLESTEROL 165 mg/dL (<200); HDL CHOLESTEROL 41 mg/dL (40-60); LDL (CALC) 88 mg/dL (60-100); TRIGLYCERIDES 183 mg/dL (30-150)
[2023-11-22 14:05] LABS: CHOL/HDL RATIO 3.8 (1-4.5); CHOLESTEROL 160 mg/dL (<200); HDL CHOLESTEROL 42 mg/dL (40-60); LDL (CALC) 82 mg/dL (60-100); TRIGLYCERIDES 180 mg/dL (30-150)
[2023-11-22] MEDS: INSULIN LANTUS 100 UNITS/ML 10 ML VIAL SUBQ SCH ×2 (14:09→20:29)
[2023-11-22] MEDS ORDERED: VANCOMYCIN PER PHARMACY MC PRN (14:15)
[2023-11-22] MEDS: NACL 0.9% 1,000 ML IV SCH (15:00)
[2023-11-22] MEDS: BLOOD GLUCOSE MONITORING 1 DEV DEV FS SCH (16:19)
[2023-11-22] MEDS: PANTOPRAZOLE 40 MG INJ VIAL IVP SCH (16:20)
[2023-11-22] MEDS: INSULIN LISPRO SLIDING SCALE 100 UNITS/ML VIAL SUBQ PRN (16:27)
[2023-11-22] MEDS: PIPERACILLIN/TAZOBACTAM 3.375 GM in DEXTROSE 5% 50 ML IV SCH (20:15)
[2023-11-22] MEDS: traZODone 50 MG TAB PO SCH (20:15)
[2023-11-22] MEDS: risperiDONE 1 MG TAB PO SCH (20:16)
[2023-11-22] MEDS: CRUSHER, PILL MC ONE (21:02)
[2023-11-23] MEDS ORDERED: NACL 0.9% IRR 250 ML BOTTLE IR SCH
[2023-11-23] MEDS: VANCOMYCIN 500 MG in DEXTROSE 5% 100 ML IV SCH (01:46)
[2023-11-23 06:46] LABS: BASOPHILS % (AUTO) 0.2 % (0.0-2.0); EOSINOPHILS # (AUTO) 0.1 K/uL (0-0.4); EOSINOPHILS % (AUTO) 0.9 % (0.0-4.0); HEMATOCRIT 30.7 % (36-48); HEMOGLOBIN 10.4 g/dL (12.0-16.0); LYMPHOCYTES # (AUTO) 1.9 K/uL (2.5-16.5); LYMPHOCYTES % (AUTO) 33.4 % (20.5-51.1); MEAN CORPUSCULAR HEMOGLOBIN 30 pg (27-31); MEAN CORPUSCULAR HGB CONC 34 g/dL (33-37); MONOCYTES # (AUTO) 0.5 K/uL (0.8-1.0); MONOCYTES % (AUTO) 8.2 % (1.7-9.3); NEUTROPHILS # (AUTO) 3.2 K/uL (1.8-7.7); NEUTROPHILS % (AUTO) 57.3 % (42.2-75.2); PLATELET COUNT (AUTO) 272 K/uL (140-450); RED BLOOD CELL COUNT(AUTO) 3.49 MIL/uL (4.20-5.40); RED CELL DISTRIBUTION WIDTH 12.1 % (11.6-13.7); WHITE BLOOD COUNT (AUTO) 5.6 K/uL (4.8-10.8)
[2023-11-23 08:00] VITALS: BP 100/59; PULSE 81; RESP 18; TEMP 96.8; O2SAT 98
[2023-11-23] MEDS: lisinopriL 5 MG TAB PO SCH (09:00)
[2023-11-23 09:01] LABS: AMPHETAMINE, URINE NEGATIVE ng/ml (NEG <=1000); BARBITURATE, URINE NEGATIVE ng/ml (NEG <=200); BENZODIAZEPINE, URINE NEGATIVE ng/mL (NEG <=200); CANNABINOID, URINE NEGATIVE ng/mL (NEG <=50); COCAINE, URINE NEGATIVE ng/mL (NEG <=300); OPIATE, URINE NEGATIVE ng/mL (NEG <=2000); PHENCYCLIDINE SCREEN,URINE NEGATIVE ng/mL (NEG <=25)
[2023-11-23] MEDS: DULoxetine 30 MG CAPDR PO SCH (09:02)
[2023-11-23] MEDS: ATORVASTATIN 20 MG TAB PO SCH (09:02)
[2023-11-23 10:03] LABS: ALBUMIN 2.5 g/dL (3.4-5.0); CARBON DIOXIDE 26.8 mmol/L (21-32); CREATININE 0.5 mg/dL (0.6-1.3); MAGNESIUM 1.8 mg/dL (1.8-2.4); PHOSPHORUS 3.7 mg/dL (2.5-4.9); POTASSIUM 3.8 mmol/L (3.5-5.1); TOTAL BILIRUBIN 0.4 mg/dL (0.0-1.0); TOTAL PROTEIN, SERUM 6.4 g/dL (6.4-8.2)
[2023-11-23] MEDS: VANCOMYCIN 1,000 MG in DEXTROSE 5% 250 ML IV SCH (10:50)
[2023-11-23] MEDS: GAUZE TP SCH (13:00)
[2023-11-23 16:00] VITALS: BP 102/51; PULSE 79; RESP 18; TEMP 97.3; O2SAT 98
[2023-11-23 20:00] VITALS: PULSE 78; RESP 18; TEMP 98.1; O2SAT 95
[2023-11-24] VITALS: BP 118/60; PULSE 84; RESP 18; TEMP 98.1; O2SAT 96
[2023-11-24 06:39] LABS: BASOPHILS % (AUTO) 0.1 % (0.0-2.0); EOSINOPHILS % (AUTO) 0.7 % (0.0-4.0); HEMATOCRIT 33.8 % (36-48); HEMOGLOBIN 11.3 g/dL (12.0-16.0); LYMPHOCYTES # (AUTO) 1.4 K/uL (2.5-16.5); LYMPHOCYTES % (AUTO) 30.4 % (20.5-51.1); MEAN CORPUSCULAR HEMOGLOBIN 30 pg (27-31); MEAN CORPUSCULAR HGB CONC 34 g/dL (33-37); MEAN CORPUSCULAR VOLUME 88.5 fL (80-94); MONOCYTES # (AUTO) 0.2 K/uL (0.8-1.0); MONOCYTES % (AUTO) 5.3 % (1.7-9.3); NEUTROPHILS # (AUTO) 2.9 K/uL (1.8-7.7); NEUTROPHILS % (AUTO) 63.5 % (42.2-75.2); PLATELET COUNT (AUTO) 313 K/uL (140-450); RED BLOOD CELL COUNT(AUTO) 3.82 MIL/uL (4.20-5.40); RED CELL DISTRIBUTION WIDTH 12.2 % (11.6-13.7); WHITE BLOOD COUNT (AUTO) 4.6 K/uL (4.8-10.8)
[2023-11-24 07:25] LABS: ANION GAP 12.8 (8-16); CALCIUM 7.9 mg/dL (8.5-10.1); CARBON DIOXIDE 28.8 mmol/L (21-32); CREATININE 0.5 mg/dL (0.6-1.3); POTASSIUM 3.6 mmol/L (3.5-5.1)
[2023-11-24 08:00] VITALS: BP 139/67; PULSE 84; RESP 18; TEMP 98; O2SAT 97
[2023-11-24] MEDS ORDERED: GAUZE TP PRN (14:40)
[2023-11-24 16:00] VITALS: BP 157/70; PULSE 82; RESP 18; TEMP 98.9; O2SAT 98
[2023-11-24 20:00] VITALS: RESP 18; TEMP 97.7; O2SAT 98
[2023-11-25 07:20] LABS: ALBUMIN 2.4 g/dL (3.4-5.0); ANION GAP 8.1 (8-16); CALCIUM 7.9 mg/dL (8.5-10.1); CARBON DIOXIDE 31.9 mmol/L (21-32); CREATININE 0.5 mg/dL (0.6-1.3); MAGNESIUM 1.7 mg/dL (1.8-2.4); TOTAL BILIRUBIN 0.3 mg/dL (0.0-1.0); TOTAL PROTEIN, SERUM 6.1 g/dL (6.4-8.2)
[2023-11-25 07:22] LABS: BASOPHILS % (AUTO) 0.4 % (0.0-2.0); HEMATOCRIT 30.6 % (36-48); HEMOGLOBIN 10.5 g/dL (12.0-16.0); LYMPHOCYTES # (AUTO) 1.3 K/uL (2.5-16.5); LYMPHOCYTES % (AUTO) 34.8 % (20.5-51.1); MEAN CORPUSCULAR HEMOGLOBIN 30 pg (27-31); MEAN CORPUSCULAR HGB CONC 34 g/dL (33-37); MONOCYTES # (AUTO) 0.3 K/uL (0.8-1.0); MONOCYTES % (AUTO) 6.9 % (1.7-9.3); NEUTROPHILS # (AUTO) 2.1 K/uL (1.8-7.7); NEUTROPHILS % (AUTO) 56.9 % (42.2-75.2); PLATELET COUNT (AUTO) 318 K/uL (140-450); RED BLOOD CELL COUNT(AUTO) 3.52 MIL/uL (4.20-5.40); WHITE BLOOD COUNT (AUTO) 3.7 K/uL (4.8-10.8)
[2023-11-25 08:00] VITALS: BP 99/55; PULSE 74; RESP 16; TEMP 98.2; O2SAT 98
[2023-11-25] MEDS: POTASSIUM CHLORIDE 10 MEQ TABER PO PRN (08:56)
[2023-11-25] MEDS: ACETAMINOPHEN 325 MG TAB PO PRN (08:57)
[2023-11-25] MEDS: MAGNESIUM OXIDE 400 MG TAB PO PRN (08:57)
[2023-11-25] MEDS: GAUZE TP SCH (13:00)
[2023-11-25 16:00] VITALS: BP 93/60; PULSE 86; RESP 16; TEMP 97.6; O2SAT 97
[2023-11-25 20:00] VITALS: BP 117/56; PULSE 82; RESP 20; TEMP 97.2; TEMP 97.5; O2SAT 92; O2SAT 98
[2023-11-26 04:00] VITALS: BP_SYST 101; BP_SYST 97; BP_DIAS 53; BP_DIAS 54; PULSE 75; RESP 18; TEMP 100; O2SAT 95
[2023-11-26 07:45] LABS: BASOPHILS % (AUTO) 0.2 % (0.0-2.0); EOSINOPHILS % (AUTO) 0.6 % (0.0-4.0); HEMATOCRIT 28.8 % (36-48); HEMOGLOBIN 9.9 g/dL (12.0-16.0); LYMPHOCYTES # (AUTO) 1.4 K/uL (2.5-16.5); MEAN CORPUSCULAR HEMOGLOBIN 30 pg (27-31); MEAN CORPUSCULAR HGB CONC 34 g/dL (33-37); MEAN CORPUSCULAR VOLUME 88.3 fL (80-94); MONOCYTES # (AUTO) 0.5 K/uL (0.8-1.0); MONOCYTES % (AUTO) 9.8 % (1.7-9.3); NEUTROPHILS # (AUTO) 3.2 K/uL (1.8-7.7); NEUTROPHILS % (AUTO) 62.4 % (42.2-75.2); PLATELET COUNT (AUTO) 299 K/uL (140-450); RED BLOOD CELL COUNT(AUTO) 3.27 MIL/uL (4.20-5.40); WHITE BLOOD COUNT (AUTO) 5.2 K/uL (4.8-10.8)
[2023-11-26 07:55] LABS: ANION GAP 7.5 (8-16); CALCIUM 8.1 mg/dL (8.5-10.1); CARBON DIOXIDE 30.7 mmol/L (21-32); CREATININE 1.1 mg/dL (0.6-1.3); POTASSIUM 3.2 mmol/L (3.5-5.1)
[2023-11-26 08:00] VITALS: PULSE 65; RESP 18; TEMP 98.6; O2SAT 100
[2023-11-26 16:00] VITALS: BP 134/61; PULSE 75; RESP 18; TEMP 98.4; O2SAT 99
[2023-11-26] MEDS ORDERED: METF-353 PO (19:05)
[2023-11-26] MEDS ORDERED: LANTUS SUBQ (19:05)
[2023-11-26] MEDS ORDERED: LEVO750T75 PO (19:09)
[2023-11-26 20:00] VITALS: BP 148/76; PULSE 80; RESP 18; TEMP 97.3; O2SAT 93
[2023-11-27 04:00] VITALS: BP 117/63; PULSE 75; RESP 18; TEMP 98.3; O2SAT 95
[2023-11-27 07:01] LABS: BASOPHILS % (AUTO) 0.2 % (0.0-2.0); EOSINOPHILS % (AUTO) 0.7 % (0.0-4.0); HEMATOCRIT 30.2 % (36-48); HEMOGLOBIN 10.2 g/dL (12.0-16.0); LYMPHOCYTES # (AUTO) 1.2 K/uL (2.5-16.5); LYMPHOCYTES % (AUTO) 25.8 % (20.5-51.1); MEAN CORPUSCULAR HEMOGLOBIN 30 pg (27-31); MEAN CORPUSCULAR HGB CONC 34 g/dL (33-37); MEAN CORPUSCULAR VOLUME 87.4 fL (80-94); MONOCYTES # (AUTO) 0.4 K/uL (0.8-1.0); MONOCYTES % (AUTO) 9.1 % (1.7-9.3); NEUTROPHILS # (AUTO) 2.9 K/uL (1.8-7.7); NEUTROPHILS % (AUTO) 64.2 % (42.2-75.2); PLATELET COUNT (AUTO) 301 K/uL (140-450); RED BLOOD CELL COUNT(AUTO) 3.46 MIL/uL (4.20-5.40); RED CELL DISTRIBUTION WIDTH 12.1 % (11.6-13.7); WHITE BLOOD COUNT (AUTO) 4.5 K/uL (4.8-10.8)
[2023-11-27 07:05] LABS: ANION GAP 9.5 (8-16); CALCIUM 8.3 mg/dL (8.5-10.1); CARBON DIOXIDE 29.3 mmol/L (21-32); CREATININE 1.1 mg/dL (0.6-1.3); POTASSIUM 3.8 mmol/L (3.5-5.1)
[2023-11-27 08:00] VITALS: PULSE 75; RESP 18; TEMP 98.1; O2SAT 95
[2023-11-27 10:18] VITALS: BP 109/47; PULSE 75; RESP 17; TEMP 98.2
== END 2023-11-27 11:00 | disposition home or self-care (01) | DRG 420 ==
LOC: MED 09:25 → MTU 12:24
PROVIDERS: ADMIT Student in an Organized Health Care Education/Training Program; ATTEND Student in an Organized Health Care Education/Training Program
DX: E11.621 Type 2 diabetes mellitus with foot ulcer (principal); E87.20 Acidosis, unspecified; E44.0 Moderate protein-calorie malnutrition; L03.116 Cellulitis of left lower limb; D64.9 Anemia, unspecified; E78.5 Hyperlipidemia, unspecified; F31.9 Bipolar disorder, unspecified; E11.65 Type 2 diabetes mellitus with hyperglycemia; I10 Essential (primary) hypertension; K21.9 Gastro-esophageal reflux disease without esophagitis; M81.8 Other osteoporosis without current pathological fracture; Z79.899 Other long term (current) drug therapy; Z90.49 Acquired absence of other specified parts of digestive tract; Z98.891 History of uterine scar from previous surgery; Z68.21 Body mass index [BMI] 21.0-21.9, adult
CPT/HCPCS: 36415; 71045; 73630; 73700; 80048; 80053; 80076; 80202; 80305; 81003; 82803; 82948; 83036; 83605; 83735; 83880; 84100; 84484; 85025; 85610; 85651; 85730; 87040; 87070; 87075; 87081; 87186; 93005; 96361; 96365; 96375; 99285; J1815; J2405; J2470; J2543; J3010; J3370; J7060

== ENCOUNTER 2023-12-19 19:51 | Inpatient (IN) | payer MEDICAID ==
[~2023-12-19] VITALS: Ht 157.5 cm; Wt 54.0 kg
[~2023-12-19 19:51] MED LIST changes: -ACET-9882 PO; -AMOX-999 PO; -BENZ-300 PO; -CIPR500T4 PO; -LACT1.4C PO; +LANTUS SUBQ; +LEVO750T75 PO; +METF-353 PO; -METF-713 PO; -PROM118S5 PO
[2023-12-19 19:57] VITALS: BP 106/66; PULSE 107; RESP 18; TEMP 99.3; O2SAT 90
[2023-12-19 20:50] LABS: BASOPHILS % (AUTO) 0.3 % (0.0-2.0); HEMATOCRIT 35.1 % (36-48); HEMOGLOBIN 11.7 g/dL (12.0-16.0); LYMPHOCYTES # (AUTO) 0.8 K/uL (2.5-16.5); LYMPHOCYTES % (AUTO) 6.3 % (20.5-51.1); MEAN CORPUSCULAR HEMOGLOBIN 30 pg (27-31); MEAN CORPUSCULAR HGB CONC 33 g/dL (33-37); MEAN CORPUSCULAR VOLUME 88.4 fL (80-94); MONOCYTES # (AUTO) 0.6 K/uL (0.8-1.0); MONOCYTES % (AUTO) 4.8 % (1.7-9.3); NEUTROPHILS # (AUTO) 11.6 K/uL (1.8-7.7); NEUTROPHILS % (AUTO) 88.6 % (42.2-75.2); PLATELET COUNT (AUTO) 335 K/uL (140-450); RED BLOOD CELL COUNT(AUTO) 3.97 MIL/uL (4.20-5.40); RED CELL DISTRIBUTION WIDTH 12.1 % (11.6-13.7); WHITE BLOOD COUNT (AUTO) 13.1 K/uL (4.8-10.8)
[2023-12-19] MEDS: NACL 0.9% 1,000 ML IV ONE ×2 (20:56→21:27)
[2023-12-19 21:13] LABS: ALBUMIN 3.2 g/dL (3.4-5.0); ANION GAP 14.5 (8-16); CALCIUM 9.2 mg/dL (8.5-10.1); CARBON DIOXIDE 26.7 mmol/L (21-32); CREATININE 1.2 mg/dL (0.6-1.3); POTASSIUM 4.2 mmol/L (3.5-5.1); TOTAL BILIRUBIN 0.7 mg/dL (0.0-1.0); TOTAL PROTEIN, SERUM 8.8 g/dL (6.4-8.2)
[2023-12-19] MEDS: INSULIN REGULAR, HUMAN 100 UNIT/ML VIAL IVP ONE (21:35)
[2023-12-19] MEDS ORDERED: VANCOMYCIN 1,000 MG VIAL ONE (22:45)
[2023-12-19] MEDS ORDERED: DULO-29 PO (23:02)
[2023-12-19] MEDS ORDERED: [UNRECOGNIZED DRUG - CODE] (23:02)
[2023-12-19] MEDS ORDERED: TRAZ150T36 PO (23:02)
[2023-12-19] MEDS ORDERED: RISP3TAB76 PO (23:02)
[2023-12-19] MEDS ORDERED: [UNRECOGNIZED DRUG - CODE] (23:02)
[2023-12-19] MEDS ORDERED: GLUC-633 (23:02)
[2023-12-19] MEDS ORDERED: DULA3PEN SUBQ (23:02)
[2023-12-19] MEDS ORDERED: INSU100I7 SUBQ (23:02)
[2023-12-19] MEDS: VANCOMYCIN 1,000 MG in DEXTROSE 5% 250 ML IV ONE (23:14)
[2023-12-19 23:30] LABS: APPEARANCE,URINE CLEAR (CLEAR); BILIRUBIN,URINE NEGATIVE (NEGATIVE); BLOOD, URINE TRACE-I (NEGATIVE); COLOR,URINE YELLOW (YELLOW); LEUKOCYTE ESTERASE ,URINE NEGATIVE (NEGATIVE); NITRITE, URINE NEGATIVE (NEGATIVE); PROTEIN,URINE NEGATIVE (NEGATIVE); UGLUCOSE 3+ (NEGATIVE); UROBILINOGEN,URINE 0.2 EU/dL (0.2 - 1)
[2023-12-19 23:38] LABS: BACTERIA,URINE FEW /HPF (None Seen); MUCUS,URINE None Seen /LPF (None Seen); RBC,URINE 0-5 /HPF (0-5); SQUAMOUS EPITHELIAL CELL,UR 0-3 (FEW) /LPF (0-3 (FEW)); WBC,URINE 0-5 /HPF (0-5)
[2023-12-19] MEDS ORDERED: VANCOMYCIN PER PHARMACY MC PRN (23:50)
[2023-12-19] MEDS ORDERED: HYDROcodone/APAP 5/325 MG 1 TAB TAB PO PRN (23:50)
[2023-12-20] MEDS: NACL 0.9% 1,000 ML IV SCH (00:42)
[2023-12-20] MEDS ORDERED: CEFEPIME 1,000 MG VIAL ONE (00:45)
[2023-12-20] MEDS: CEFEPIME 1,000 MG in DEXTROSE 5% 50 ML IV SCH ×2 (00:54→12:00)
[2023-12-20 01:45] VITALS: BP 111/54; PULSE 92; RESP 16; TEMP 97.7; O2SAT 96
[2023-12-20 06:53] LABS: BASOPHILS % (AUTO) 0.1 % (0.0-2.0); EOSINOPHILS % (AUTO) 0.1 % (0.0-4.0); HEMATOCRIT 26.5 % (36-48); LYMPHOCYTES # (AUTO) 1.1 K/uL (2.5-16.5); LYMPHOCYTES % (AUTO) 10.5 % (20.5-51.1); MEAN CORPUSCULAR HEMOGLOBIN 30 pg (27-31); MEAN CORPUSCULAR HGB CONC 34 g/dL (33-37); MONOCYTES # (AUTO) 0.8 K/uL (0.8-1.0); MONOCYTES % (AUTO) 7.6 % (1.7-9.3); NEUTROPHILS # (AUTO) 8.6 K/uL (1.8-7.7); NEUTROPHILS % (AUTO) 81.7 % (42.2-75.2); PLATELET COUNT (AUTO) 249 K/uL (140-450); RED BLOOD CELL COUNT(AUTO) 3.05 MIL/uL (4.20-5.40); RED CELL DISTRIBUTION WIDTH 11.8 % (11.6-13.7); WHITE BLOOD COUNT (AUTO) 10.5 K/uL (4.8-10.8)
[2023-12-20 07:13] LABS: CARBON DIOXIDE 24.7 mmol/L (21-32); CREATININE 0.8 mg/dL (0.6-1.3); POTASSIUM 3.7 mmol/L (3.5-5.1)
[2023-12-20] MEDS: PIPERACILLIN/TAZOBACTAM 3.375 GM VIAL IV ONE (07:18)
[2023-12-20 08:00] VITALS: BP 112/47; PULSE 96; RESP 18; TEMP 98.7; O2SAT 96
[2023-12-20] MEDS: DULoxetine 30 MG CAPDR PO SCH (08:27)
[2023-12-20] MEDS: FAMOTIDINE 20 MG TAB PO SCH (08:27)
[2023-12-20] MEDS: ACETAMINOPHEN 325 MG TAB PO PRN (08:29)
[2023-12-20] MEDS: CRUSHER, PILL MC ONE (08:30)
[2023-12-20] MEDS: VANCOMYCIN HCL 750 MG in NACL 0.9% 250 ML IV SCH (10:54)
[2023-12-20] MEDS: ONDANSETRON 4 MG/2 ML VIAL IVP PRN (11:03)
[2023-12-20] MEDS ORDERED: MORPHINE SULFATE 2 MG/ML SYR IVP PRN (11:40)
[2023-12-20] MEDS ORDERED: KCL 20 MEQ IN 100 mL PREMIX 200 ML IV PRN (11:40)
[2023-12-20] MEDS ORDERED: ACETAMINOPHEN 325 MG TAB PO PRN (11:40)
[2023-12-20] MEDS ORDERED: MAG SULF 2000 MG/WATER PREMIX 50 ML IV PRN (11:40)
[2023-12-20] MEDS ORDERED: GAUZE TP PRN (12:55)
[2023-12-20] MEDS: GAUZE TP SCH (13:15)
[2023-12-20] MEDS ORDERED: METOCLOPRAMIDE 10 MG/2 ML INJ VIAL IVP PRN (15:05)
[2023-12-20] MEDS: BLOOD GLUCOSE MONITORING 1 DEV DEV FS SCH (16:54)
[2023-12-20] MEDS: INSULIN LISPRO SLIDING SCALE 100 UNITS/ML VIAL SUBQ PRN (17:13)
[2023-12-20 19:59] VITALS: BP 98/45; PULSE 90; RESP 17; TEMP 98.2; O2SAT 98
[2023-12-20 20:03] VITALS: PULSE 90; RESP 17; O2SAT 97
[2023-12-20] MEDS: INSULIN LANTUS 100 UNITS/ML 10 ML VIAL SUBQ SCH (21:17)
[2023-12-21 03:59] VITALS: BP 109/40; PULSE 89; RESP 18; TEMP 98; O2SAT 100
[2023-12-21 06:55] LABS: BASOPHILS % (AUTO) 0.2 % (0.0-2.0); HEMATOCRIT 27.7 % (36-48); HEMOGLOBIN 9.5 g/dL (12.0-16.0); LYMPHOCYTES # (AUTO) 1.1 K/uL (2.5-16.5); LYMPHOCYTES % (AUTO) 10.1 % (20.5-51.1); MEAN CORPUSCULAR HEMOGLOBIN 30 pg (27-31); MEAN CORPUSCULAR HGB CONC 34 g/dL (33-37); MEAN CORPUSCULAR VOLUME 87.2 fL (80-94); MONOCYTES # (AUTO) 0.6 K/uL (0.8-1.0); MONOCYTES % (AUTO) 5.7 % (1.7-9.3); NEUTROPHILS # (AUTO) 8.8 K/uL (1.8-7.7); PLATELET COUNT (AUTO) 296 K/uL (140-450); RED BLOOD CELL COUNT(AUTO) 3.18 MIL/uL (4.20-5.40); WHITE BLOOD COUNT (AUTO) 10.4 K/uL (4.8-10.8)
[2023-12-21 06:56] LABS: ANION GAP 12.7 (8-16); CALCIUM 8.3 mg/dL (8.5-10.1); CARBON DIOXIDE 26.9 mmol/L (21-32); CREATININE 0.7 mg/dL (0.6-1.3); POTASSIUM 3.6 mmol/L (3.5-5.1)
[2023-12-21 08:00] VITALS: BP 113/50; PULSE 83; RESP 18; TEMP 96.9; O2SAT 96
[2023-12-21 16:00] VITALS: BP 134/64; PULSE 87; RESP 18; TEMP 98.2; O2SAT 97
[2023-12-21 20:00] VITALS: PULSE 83; RESP 18; O2SAT 96
[2023-12-22] VITALS: BP 136/62; PULSE 83; RESP 18; TEMP 98.2; O2SAT 98
[2023-12-22 06:50] LABS: BASOPHILS % (AUTO) 0.4 % (0.0-2.0); EOSINOPHILS % (AUTO) 0.6 % (0.0-4.0); HEMOGLOBIN 9.2 g/dL (12.0-16.0); LYMPHOCYTES # (AUTO) 1.1 K/uL (2.5-16.5); LYMPHOCYTES % (AUTO) 13.7 % (20.5-51.1); MEAN CORPUSCULAR HEMOGLOBIN 30 pg (27-31); MEAN CORPUSCULAR HGB CONC 34 g/dL (33-37); MEAN CORPUSCULAR VOLUME 87.5 fL (80-94); MONOCYTES # (AUTO) 0.6 K/uL (0.8-1.0); MONOCYTES % (AUTO) 7.5 % (1.7-9.3); NEUTROPHILS % (AUTO) 77.8 % (42.2-75.2); PLATELET COUNT (AUTO) 289 K/uL (140-450); RED BLOOD CELL COUNT(AUTO) 3.08 MIL/uL (4.20-5.40); RED CELL DISTRIBUTION WIDTH 11.9 % (11.6-13.7); WHITE BLOOD COUNT (AUTO) 7.7 K/uL (4.8-10.8)
[2023-12-22 07:01] LABS: ANION GAP 11.7 (8-16); CALCIUM 8.3 mg/dL (8.5-10.1); CARBON DIOXIDE 26.6 mmol/L (21-32); CREATININE 0.6 mg/dL (0.6-1.3); POTASSIUM 3.3 mmol/L (3.5-5.1)
[2023-12-22 08:00] VITALS: BP 137/53; PULSE 80; RESP 18; TEMP 97.6; O2SAT 98
[2023-12-22 16:00] VITALS: BP 159/71; PULSE 89; RESP 18; TEMP 98.2; O2SAT 99
[2023-12-22 20:00] VITALS: BP 137/53; PULSE 80; RESP 18; TEMP 97.6; O2SAT 98
[2023-12-22] MEDS: HYDROcodone/APAP 5/325 MG 1 TAB TAB PO PRN (21:08)
[2023-12-23] MEDS: POTASSIUM CHLORIDE 10 MEQ TABER PO PRN (01:44)
[2023-12-23 04:00] VITALS: BP 95/39; PULSE 78; RESP 18; TEMP 97.7; O2SAT 96
[2023-12-23 08:00] VITALS: BP 95/39; PULSE 78; RESP 18; TEMP 97.7; O2SAT 95; O2SAT 96
[2023-12-23 11:36] LABS: BASOPHILS % (AUTO) 0.3 % (0.0-2.0); EOSINOPHILS # (AUTO) 0.1 K/uL (0-0.4); EOSINOPHILS % (AUTO) 1.2 % (0.0-4.0); HEMOGLOBIN 9.8 g/dL (12.0-16.0); LYMPHOCYTES # (AUTO) 0.7 K/uL (2.5-16.5); LYMPHOCYTES % (AUTO) 11.4 % (20.5-51.1); MEAN CORPUSCULAR HEMOGLOBIN 30 pg (27-31); MEAN CORPUSCULAR HGB CONC 34 g/dL (33-37); MEAN CORPUSCULAR VOLUME 87.5 fL (80-94); MONOCYTES # (AUTO) 0.5 K/uL (0.8-1.0); MONOCYTES % (AUTO) 8.4 % (1.7-9.3); NEUTROPHILS # (AUTO) 4.7 K/uL (1.8-7.7); NEUTROPHILS % (AUTO) 78.7 % (42.2-75.2); PLATELET COUNT (AUTO) 330 K/uL (140-450); RED BLOOD CELL COUNT(AUTO) 3.31 MIL/uL (4.20-5.40); RED CELL DISTRIBUTION WIDTH 11.9 % (11.6-13.7); WHITE BLOOD COUNT (AUTO) 5.9 K/uL (4.8-10.8)
[2023-12-23 16:00] VITALS: BP 157/60; PULSE 93; RESP 18; TEMP 98.4; O2SAT 95
[2023-12-23 20:00] VITALS: BP 122/50; PULSE 78; PULSE 93; RESP 18; TEMP 97.7; O2SAT 95
[2023-12-24 08:00] VITALS: BP 131/57; PULSE 85; RESP 18; TEMP 98.1; O2SAT 97
[2023-12-24] MEDS ORDERED: ERTAPENEM SODIUM 1,000 MG in NACL 0.9% 50 ML IV SCH ×2 (09:00→22:45)
[2023-12-24 09:49] VITALS: PULSE 85; RESP 18; O2SAT 97
[2023-12-24 16:00] VITALS: BP 137/65; PULSE 84; RESP 18; TEMP 97.7; O2SAT 98
[2023-12-24 20:00] VITALS: PULSE 91; RESP 20; O2SAT 97
[2023-12-25] VITALS: BP 158/75; PULSE 86; RESP 19; TEMP 98.4; O2SAT 99
[2023-12-25 08:00] VITALS: BP 122/50; PULSE 80; PULSE 91; RESP 18; RESP 20; TEMP 97.6; O2SAT 99
[2023-12-25] MEDS: ERTAPENEM SODIUM 1,000 MG in NACL 0.9% 50 ML IV SCH (09:14)
[2023-12-25 10:35] LABS: ANION GAP 10.6 (8-16); CALCIUM 8.4 mg/dL (8.5-10.1); CREATININE 0.8 mg/dL (0.6-1.3)
[2023-12-25 10:38] LABS: POTASSIUM 2.6 mmol/L (3.5-5.1)
[2023-12-25] MEDS ORDERED: POTASSIUM CHLORIDE 40 MEQ, LIDOCAINE 1% 25 MG in NACL 0.9% 250 ML IV ONE (11:05)
[2023-12-25] MEDS: POTASSIUM CHLORIDE 40 MEQ, LIDOCAINE 1% 25 MG in NACL 0.9% 250 ML IV SCH (12:06)
[2023-12-25 16:00] VITALS: BP 157/71; PULSE 89; RESP 18; TEMP 98.4; O2SAT 100
[2023-12-25 20:00] VITALS: PULSE 90; RESP 17; O2SAT 100
[2023-12-26] VITALS: BP 92/49; PULSE 117; RESP 20; TEMP 97.6; O2SAT 100
[2023-12-26] MEDS: DEXTROSE 50% 50 ML SYR IVP PRN (06:31)
[2023-12-26 08:00] VITALS: BP 110/58; PULSE 78; PULSE 81; RESP 18; TEMP 98.5; O2SAT 99
[2023-12-26 09:13] LABS: BASOPHILS % (AUTO) 0.5 % (0.0-2.0); EOSINOPHILS # (AUTO) 0.1 K/uL (0-0.4); EOSINOPHILS % (AUTO) 1.3 % (0.0-4.0); HEMATOCRIT 32.9 % (36-48); LYMPHOCYTES # (AUTO) 1.2 K/uL (2.5-16.5); LYMPHOCYTES % (AUTO) 20.7 % (20.5-51.1); MEAN CORPUSCULAR HEMOGLOBIN 29 pg (27-31); MEAN CORPUSCULAR HGB CONC 33 g/dL (33-37); MEAN CORPUSCULAR VOLUME 87.2 fL (80-94); MONOCYTES # (AUTO) 0.7 K/uL (0.8-1.0); MONOCYTES % (AUTO) 11.6 % (1.7-9.3); NEUTROPHILS # (AUTO) 3.8 K/uL (1.8-7.7); NEUTROPHILS % (AUTO) 65.9 % (42.2-75.2); PLATELET COUNT (AUTO) 526 K/uL (140-450); RED BLOOD CELL COUNT(AUTO) 3.78 MIL/uL (4.20-5.40); WHITE BLOOD COUNT (AUTO) 5.7 K/uL (4.8-10.8)
[2023-12-26 09:42] LABS: CALCIUM 8.8 mg/dL (8.5-10.1); CREATININE 0.7 mg/dL (0.6-1.3)
[2023-12-26 16:00] VITALS: BP 123/79; PULSE 98; RESP 18; TEMP 99; O2SAT 99
[2023-12-26 23:27] VITALS: PULSE 75; RESP 16; O2SAT 98
[2023-12-27] VITALS: BP 120/70; PULSE 75; RESP 18; TEMP 98.2; O2SAT 98
[2023-12-27 06:41] LABS: BASOPHILS % (AUTO) 0.3 % (0.0-2.0); EOSINOPHILS # (AUTO) 0.1 K/uL (0-0.4); EOSINOPHILS % (AUTO) 2.4 % (0.0-4.0); HEMATOCRIT 31.3 % (36-48); HEMOGLOBIN 10.4 g/dL (12.0-16.0); LYMPHOCYTES # (AUTO) 1.5 K/uL (2.5-16.5); LYMPHOCYTES % (AUTO) 27.5 % (20.5-51.1); MEAN CORPUSCULAR HEMOGLOBIN 29 pg (27-31); MEAN CORPUSCULAR HGB CONC 33 g/dL (33-37); MEAN CORPUSCULAR VOLUME 86.8 fL (80-94); MONOCYTES # (AUTO) 0.6 K/uL (0.8-1.0); MONOCYTES % (AUTO) 12.1 % (1.7-9.3); NEUTROPHILS # (AUTO) 3.1 K/uL (1.8-7.7); NEUTROPHILS % (AUTO) 57.7 % (42.2-75.2); PLATELET COUNT (AUTO) 512 K/uL (140-450); RED BLOOD CELL COUNT(AUTO) 3.61 MIL/uL (4.20-5.40); RED CELL DISTRIBUTION WIDTH 12.5 % (11.6-13.7); WHITE BLOOD COUNT (AUTO) 5.3 K/uL (4.8-10.8)
[2023-12-27 08:00] VITALS: BP 115/53; PULSE 88; RESP 16; TEMP 98.6; O2SAT 98
[2023-12-27 08:28] LABS: ALBUMIN 2.4 g/dL (3.4-5.0); ANION GAP 10.7 (8-16); CALCIUM 8.9 mg/dL (8.5-10.1); CARBON DIOXIDE 34.5 mmol/L (21-32); CREATININE 0.8 mg/dL (0.6-1.3); MAGNESIUM 1.6 mg/dL (1.8-2.4); PHOSPHORUS 3.5 mg/dL (2.5-4.9); POTASSIUM 3.2 mmol/L (3.5-5.1); TOTAL BILIRUBIN 0.4 mg/dL (0.0-1.0); TOTAL PROTEIN, SERUM 7.6 g/dL (6.4-8.2)
[2023-12-27] MEDS: MAGNESIUM OXIDE 400 MG TAB PO PRN (09:17)
[2023-12-27] MEDS ORDERED: AMOX-999 PO (16:34)
[2023-12-27 17:12] VITALS: BP 115/53; PULSE 88; RESP 16; TEMP 98.6
== END 2023-12-27 17:20 | disposition home or self-care (01) | DRG 720 ==
LOC: MED 19:51 → MMU 12-20 00:02 → MTU 12-20 01:17
PROVIDERS: ADMIT Student in an Organized Health Care Education/Training Program; ATTEND Student in an Organized Health Care Education/Training Program
PROC: 05HY33Z Insertion of Infusion Device into Upper Vein, Percutaneous Approach (ICD-10-PCS; principal; 2023-12-22)
PROC: B54MZZA Ultrasonography of Right Upper Extremity Veins, Guidance (ICD-10-PCS; 2023-12-22)
DX: A41.9 Sepsis, unspecified organism (principal); E11.00 Type 2 diabetes mellitus with hyperosmolarity without nonketotic hyperglycemic-hyperosmolar coma (NKHHC); E44.1 Mild protein-calorie malnutrition; L97.529 Non-pressure chronic ulcer of other part of left foot with unspecified severity; R71.0 Precipitous drop in hematocrit; E11.621 Type 2 diabetes mellitus with foot ulcer; M86.8X7 Other osteomyelitis, ankle and foot; L03.116 Cellulitis of left lower limb; E11.69 Type 2 diabetes mellitus with other specified complication; I10 Essential (primary) hypertension; E78.5 Hyperlipidemia, unspecified; K21.9 Gastro-esophageal reflux disease without esophagitis; Z79.899 Other long term (current) drug therapy; Z79.4 Long term (current) use of insulin; Z90.49 Acquired absence of other specified parts of digestive tract; Z98.891 History of uterine scar from previous surgery; Z68.21 Body mass index [BMI] 21.0-21.9, adult
CPT/HCPCS: 36415; 73630; 80048; 80053; 80202; 81001; 82948; 83036; 83605; 83735; 84100; 85025; 85651; 86140; 87040; 87070; 87075; 87081; 87086; 96361; 96365; 96367; 96375; 97116; 97163-GP; 99285; J0692; J1335; J1815; J2003; J2405; J2543; J3370; J3480; J7030; J7060; Q0092